=== PATIENT | male | born 1960 | race Caucasian/White ===

== ENCOUNTER → 2017-05-10 15:47 | Outpatient (CLI) | payer BC, SELFPAY ==
[2017-05-10 18:32] LABS: Ferritin 294 ng/mL (26-388); Iron 53 ug/dL (65-175); Iron Binding Capacity,Total 298 ug/dL (250-450)
[2017-05-10 18:34] LABS: Absolute Lymphocyte Count 2.27 X10^3/ul (0.83-4.51); Absolute Neutrophil Count 9.7 X10^3/uL (2.0-7.7); Basophil# 0.02 X10^3/uL; Basophil% 0.2 % (0-1); Eosinophil# 0.14 X10^3/uL; Eosinophils% 1.1 % (0-5); Hemoglobin 12.5 g/dl (13.0-16.5); Immature Platelet Fraction 1.7 % (1.0-7.9); Lymphocyte # 2.27 X10^3/ul (4.0); Lymphocyte % 17.5 % (19-41); Mean Corp Hgb Conc 32.9 g/gl (32-36); Mean Corpuscular Hgb 30.7 pg (27.0-32.0); Mean Corpuscular Volume 93.4 fL (80-94); Mean Platelet Vol. 10.4 fl (6.2-12.0); Monocyte# 0.85 X10^3/uL; Monocyte% 6.6 % (0-10); Neutrophil # 9.67 X10^3/uL (2.7-7.7); Neutrophil % 74.4 % (47-70); Platelet Count 322 K/mm3 (150-450); RBC Distribution Width CV 13.3 % (11.6-14.6); RBC Distribution Width SD 45.5 fl (35.1-43.9); RET-HE 33.7 pg (30-35); Red Blood Count 4.07 M/mm3 (4.6-6.2); Reticulocyte Count 1.45 % (0.5-1.5)
[2017-05-10 18:39] LABS: POSITIVE COUNT NO; POSITIVE DIFFERENTIAL NO; POSITIVE MORPHOLOGY NO
== END ==
PROVIDERS: Family Provider Family Medicine; PCP Family Medicine; Visit Provider Family Medicine
DX: D64.9 Anemia, unspecified (principal)
CPT/HCPCS: 36415; 82728; 83540; 83550; 85025; 85045

== ENCOUNTER → 2017-06-21 13:55 | Outpatient (CLI) | payer BC, SELFPAY ==
[2017-06-21 15:44] LABS: Absolute Neutrophil Count 5.9 X10^3/uL (2.0-7.7); Basophil# 0.04 X10^3/uL; Basophil% 0.5 % (0-1); Eosinophil# 0.13 X10^3/uL; Eosinophils% 1.5 % (0-5); Hematocrit 38.2 % (40-54); Hemoglobin 12.9 g/dl (13.0-16.5); Lymphocyte % 21.6 % (19-41); Mean Corp Hgb Conc 33.8 g/gl (32-36); Mean Corpuscular Hgb 31.7 pg (27.0-32.0); Mean Corpuscular Volume 93.9 fL (80-94); Mean Platelet Vol. 10.6 fl (6.2-12.0); Monocyte# 0.78 X10^3/uL; Monocyte% 8.9 % (0-10); Neutrophil # 5.92 X10^3/uL (2.7-7.7); Neutrophil % 67.3 % (47-70); Platelet Count 318 K/mm3 (150-450); RBC Distribution Width CV 12.6 % (11.6-14.6); RBC Distribution Width SD 42.7 fl (35.1-43.9); Red Blood Count 4.07 M/mm3 (4.6-6.2); White Blood Count 8.8 K/mm3 (4.4-11.0)
[2017-06-21 15:48] LABS: POSITIVE COUNT NO; POSITIVE DIFFERENTIAL NO; POSITIVE MORPHOLOGY NO
[2017-06-21 15:59] LABS: Vitamin B12 1396 pg/mL (211-911)
[2017-06-21 16:08] LABS: ALB/GLOB Ratio 0.8 RATIO (0.9-2.4); AST(SGOT) 16 U/L (15-37); Alanine Aminotransfer ALT/SGPT 23 U/L (16-61); Albumin, Serum 3.6 g/dL (3.2-5.0); Alkaline Phosphatase 58 U/L (45-117); Anion Gap 10 (5-15); BUN 21 mg/dL (7-18); BUN/Creat Ratio 23.8 RATIO (10-20); Calcium,Total 8.7 mg/dL (8.5-10.1); Chloride 106 mmol/L (98-107); Creatinine, Serum 0.88 mg/dL (0.70-1.30); EST Glomerular Filtration Rate 95 mL/min (>60); Est Glom Filt Rate - Afr Amer 115 mL/min (>60); Ferritin 258 ng/mL (26-388); Globulin 4.3 g/dL (2.2-4.2); Glucose 131 mg/dL (74-106); Iron 68 ug/dL (65-175); Iron Binding Capacity,Total 278 ug/dL (250-450); Potassium 3.6 mmol/L (3.5-5.1); Protein, Total 7.9 g/dL (6.4-8.2); Sodium Level 139 mmol/L (136-145)
== END ==
PROVIDERS: Family Provider Family Medicine; PCP Family Medicine; Visit Provider Internal Medicine Medical Oncology
DX: D72.828 Other elevated white blood cell count (principal)
CPT/HCPCS: 80053; 82607; 82728; 82746; 83540; 83550; 84403; 85025

== ENCOUNTER 2017-07-27 15:30 | Outpatient (RCR) | payer BC, SELFPAY ==
[2017-06-12 15:24] VITALS: BP 124/80; PULSE 72; RESP 14; TEMP 36.6; O2SAT 96; BMI 26.4
--- NOTE | 2017-06-12 16:00 | WMO.CON_ITS ---
Consult Referring Physician: Dr. Blue Gomes. Consult Results: Neutrophilia Subjective Date of Service:: 06/12/17 Chief Complaint: Referred for anemia and neutrophilia. History of Present Illness: 56y.o.man was found to have mild anemia and neutrophilia so was referred for evaluation. Hgb was 12.5 and WBC was 13.0 with neutrophils of 9.7 on 04/12/2017. He feels tired. Denies fever, weight loss, night sweats. Mother had anemia and required blood transfusions. Power of Travel Med Surg Rn: Yes Living Will: Yes Health History: Past Medical History (Last Reviewed 06/12/17 @ 15:21 by Marily Washington) Adjustment disorder with anxiety (Acute) Anemia (Acute) Erectile dysfunction (Acute) Leukocytosis (Acute) Past Surgical History (Last Reviewed 06/12/17 @ 15:21 by Marily Washington) History of prostate biopsy (Acute) Family History (Last Updated 06/12/17 @ 15:28 by Marily Washington) Father Cancer Uncle Pernicious anemia Allergies/Adverse Reactions: Allergy/AdvReac Type Severity Reaction Status Date / Time No Known Allergies Allergy Verified 06/12/17 15:21 Home Medications Medication Instructions Recorded Ascorbic Acid [Vitamin C] 1,000 mg PO DAILY 12/07/16 Cholecalciferol (Vitamin D3) 1,000 unit PO DAILY 12/07/16 [Vitamin D3] Cyanocobalamin [Vitamin B12] 1,000 mcg PO DAILY@0800 12/07/16 Naproxen Sodium [Aleve] 220 mg PO PRN PRN 12/07/16 Saw Wishram 500 mg PO DAILY 12/07/16 Triamcinolone Acetonide [Nasacort 1 spray NASAL DAILY PRN 12/07/16 Aq Nasal [place]] Review of Systems Constitutional:: Denies: Fever, Sweats, Weight loss, Appetite change, Chills Cardiovascular:: Denies: Chest pain, Palpitations, Dyspnea on exertion, Orthopnea, PND, Shortness of breath Respiratory: Denies: Cough, Hemoptysis, Shortness of Breath, Wheezing Gastrointestinal:: Denies: Abdominal pain, Nausea, Vomiting, Diarrhea, Constipation, Hematochezia Genitourinary: Denies: Dysuria, Hematuria, 15, Flank pain Musculoskeletal:: Denies: Back pain, Myalgia, Arthralgia Skin: Denies: Rash, Skin Changes, Wounds Neurological:: Denies: Headache, Dizziness, Visual changes, Tinnitus, Hearing loss Psychiatric: Denies: Anxiety, Depression, Homicidal Ideations, Suicidal Ideations Vital Signs Height 5 ft 6 in Weight: 74.389 kg Weight in Pounds 164.0 lbs Pulse Ox 96 Temperature 98 F Pulse Rate 72 Respiratory Rate 14 Blood Pressure 124/80 Blood Pressure Position Sitting - Physical Exam General: Alert, Oriented x3, No apparent distress HEENT: Atraumatic, PERRLA, EOMI, Normocephalic Oropharynx:: Dry mucosa Neck:: Supple, Trachea midline. Negative for: JVD, bilateral Cardiac:: Regular rate, Regular rhythm, Normal S1, Normal S2. Negative for: Murmur Lungs: Clear to auscultation, Excusion symmetrical. Negative for: Rhonchi, Wheezes Abdomen:: Bowel sounds x 4, Soft, Non-tender, Non-distended. Negative for: Hepatosplenomegaly Extremities:: Negative for: Cyanosis, Edema Neurological: Neuro grossly intact Skin:: Negative for: Lesions, Rash, Petechiae, Ecchymosis Psychiatric:: Appropriate affect, Euthymic Lymphatics:: Negative for: Cervical lymphadenopathy, Supraclavicular lymphadenopathy, Axillary lymphadenopathy Assessment and Plan Neutrophilia rule out CML. Anemia. Plan is to obtain BCR/ABL to rule out CML. Also obtain CBC/CMP/Vit B12/Folate/Iron profile. RTC 2 wks. Primary Care Provider: Blue Gomes Referring Provider: Blue Gomes - Problem List (1) Neutrophilia Status: Chronic (2) Anemia Status: Chronic Qualifiers: Anemia type: unspecified type Qualified Code(s): D64.9 - Anemia, unspecified Code Visit Office Visits / Consults: [id number] OP Consult L3
[2017-07-27 15:26] VITALS: BP 118/76; PULSE 68; RESP 16; TEMP 36.9; O2SAT 96; BMI 25.9
--- NOTE | 2017-07-27 15:36 | ONC.OV1 ---
Subjective - Date of Service Date of Service:: 07/27/17 - Chief Complaint Referred for anemia and neutrophilia. - History of Present Illness 56y.o.man was found to have mild anemia and neutrophilia so was referred for evaluation. Hgb was 12.5 and WBC was 13.0 with neutrophils of 9.7 on 04/12/2017. He feels tired. Denies fever, weight loss, night sweats. Mother had anemia and required blood transfusions. - Past Medical/Social History Social History Smoking Status Never smoker Review of Systems Constitutional:: Denies: Fever, Sweats, Weight loss, Appetite change, Chills Cardiovascular:: Denies: Chest pain, Palpitations, Dyspnea on exertion, Orthopnea, PND, Shortness of breath Respiratory: Denies: Cough, Hemoptysis, Shortness of Breath, Wheezing Gastrointestinal:: Denies: Abdominal pain, Nausea, Vomiting, Diarrhea, Constipation, Hematochezia Genitourinary: Denies: Dysuria, Hematuria, 15, Flank pain Musculoskeletal:: Denies: Back pain, Myalgia, Arthralgia Skin: Denies: Rash, Skin Changes, Wounds Neurological:: Denies: Headache, Dizziness, Visual changes, Tinnitus, Hearing loss Psychiatric: Denies: Anxiety, Depression, Homicidal Ideations, Suicidal Ideations Vital Signs Height 5 ft 6 in Weight: 73.028 kg Weight in Pounds 161.0 lbs Pulse Ox 96 Temperature 98.5 F Pulse Rate 68 Respiratory Rate 16 Blood Pressure 118/76 Blood Pressure Position Sitting - Physical Exam General: Alert, Oriented x3, No apparent distress Laboratory Data: 06/21/2017 WBC 8.8. 06/21/2017 BCR/ABL negative. Assessment and Plan Neutrophilia-resolved. Plan is to do observation. F/U with Dr. Gomes RTC prn. Primary Care Provider: Blue Gomes Referring Provider: Blue Gomes - Problem List (1) Neutrophilia Status: Resolved (2) Anemia Status: Resolved Qualifiers: Anemia type: unspecified type Qualified Code(s): D64.9 - Anemia, unspecified Code Visit Office Visits / Consults: [id number] OV L3 Est
== END 2017-07-27 16:19 | disposition home or self-care (01) ==
LOC: OMD 15:30
PROVIDERS: Family Provider Family Medicine; PCP Family Medicine; Visit Provider Internal Medicine Medical Oncology
DX: D72.0 Genetic anomalies of leukocytes (principal); D64.9 Anemia, unspecified

== ENCOUNTER → 2019-02-01 09:35 | Outpatient (CLI) | payer BC, SELFPAY ==
[2019-02-01 12:31] LABS: Absolute Lymphocyte Count 1.97 X10^3/uL (0.83-4.51); Absolute Neutrophil Count 5.2 X10^3/uL (2.0-7.7); Basophil# 0.05 X10^3/uL; Basophil% 0.6 % (0-1); Eosinophil# 0.38 X10^3/uL; Eosinophils% 4.6 % (0-5); Hemoglobin 13.9 g/dL (13.0-16.5); Lymphocyte # 1.97 X10^3/ul (4.0); Mean Corp Hgb Conc 33.1 g/dL (32-36); Mean Corpuscular Hgb 31.2 pg (27.0-32.0); Mean Corpuscular Volume 94.4 fL (80-94); Mean Platelet Vol. 10.1 fl (6.2-12.0); Monocyte# 0.61 X10^3/uL; Monocyte% 7.4 % (0-10); NRBC Flagged by Analyzer 0 % (0-5); Neutrophil # 5.15 X10^3/uL (2.7-7.7); Neutrophil % 62.9 % (47-70); Platelet Count 341 K/mm3 (150-450); RBC Distribution Width CV 11.8 % (11.6-14.6); RBC Distribution Width SD 41.1 fl (35.1-43.9); Red Blood Count 4.45 M/mm3 (4.6-6.2); White Blood Count 8.2 K/mm3 (4.4-11.0)
[2019-02-01 13:22] LABS: AST(SGOT) 20 U/L (15-37); Alanine Aminotransfer ALT/SGPT 37 U/L (16-61); Albumin, Serum 4.1 g/dL (3.2-5.0); Alkaline Phosphatase 50 U/L (45-117); Anion Gap 8 (5-15); BUN 16 mg/dL (7-18); BUN/Creat Ratio 16.8 RATIO (10-20); Calcium,Total 9.1 mg/dL (8.5-10.1); Chloride 103 mmol/L (98-107); Creatinine, Serum 0.95 mg/dL (0.70-1.30); EST Glomerular Filtration Rate 87 mL/min (>60); Est Glom Filt Rate - Afr Amer 105 mL/min (>60); Globulin 4.3 g/dL (2.2-4.2); Glucose 87 mg/dL (74-106); PSA,Total- Diagnostic 0.61 ng/mL (0.0-4.0); Potassium 4.3 mmol/L (3.5-5.1); Protein, Total 8.4 g/dL (6.4-8.2); Sodium Level 140 mmol/L (136-145); Thyroid Stim Hormone (TSH) 1.18 uIU/mL (0.358-3.74)
== END ==
PROVIDERS: Family Provider Family Medicine; PCP Family Medicine; Visit Provider Family Medicine
DX: D64.9 Anemia, unspecified (principal); R97.20 Elevated prostate specific antigen [PSA]
CPT/HCPCS: 36415; 80053; 84153; 84443; 85025

== ENCOUNTER → 2019-12-05 14:23 | Outpatient (CLI) | payer BC, SELFPAY ==
[2019-12-05 18:04] LABS: Absolute Lymphocyte Count 2.28 X10^3/uL (0.83-4.51); Basophil# 0.04 X10^3/uL; Basophil% 0.5 % (0-1); Eosinophil# 0.24 X10^3/uL; Eosinophils% 2.9 % (0-5); Hematocrit 38.2 % (40-54); Hemoglobin 12.4 g/dL (13.0-16.5); Lymphocyte # 2.28 X10^3/ul (4.0); Lymphocyte % 27.6 % (19-41); Mean Corp Hgb Conc 32.5 g/dL (32-36); Mean Corpuscular Hgb 30.5 pg (27.0-32.0); Mean Corpuscular Volume 94.1 fL (80-94); Mean Platelet Vol. 10.9 fl (6.2-12.0); Monocyte% 8.5 % (0-10); NRBC Flagged by Analyzer 0 % (0-5); Neutrophil # 4.99 X10^3/uL (2.7-7.7); Neutrophil % 60.3 % (47-70); Platelet Count 314 K/mm3 (150-450); RBC Distribution Width SD 41.6 fl (35.1-43.9); Red Blood Count 4.06 M/mm3 (4.6-6.2); White Blood Count 8.3 K/mm3 (4.4-11.0)
[2019-12-05 18:29] LABS: AST(SGOT) 23 U/L (15-37); Alanine Aminotransfer ALT/SGPT 34 U/L (16-61); Albumin, Serum 3.8 g/dL (3.2-5.0); Alkaline Phosphatase 47 U/L (45-117); Anion Gap 6 (5-15); BUN 26 mg/dL (7-18); BUN/Creat Ratio 21.8 RATIO (10-20); CRP < 2.90 mg/L (0.0-3.0); Calcium,Total 8.6 mg/dL (8.5-10.1); Chloride 104 mmol/L (98-107); Creatinine, Serum 1.19 mg/dL (0.70-1.30); EST Glomerular Filtration Rate 67 mL/min (>60); Est Glom Filt Rate - Afr Amer 81 mL/min (>60); Glucose 83 mg/dL (74-106); Potassium 4.1 mmol/L (3.5-5.1); Protein, Total 7.8 g/dL (6.4-8.2); Sodium Level 137 mmol/L (136-145); Thyroid Stim Hormone (TSH) 1.27 uIU/mL (0.358-3.74)
== END ==
PROVIDERS: PCP Family Medicine; Referring Provider Family Medicine; Visit Provider Family Medicine
DX: D72.829 Elevated white blood cell count, unspecified (principal)
CPT/HCPCS: 36415; 80053; 84443; 85025; 86140

== ENCOUNTER → 2021-12-16 | Outpatient (CLI) | payer BC, SELFPAY ==
--- NOTE | 2021-12-16 15:57 | RAD_ITS ---
STUDY: X-RAY - LUMBAR SPINE REASON FOR EXAM: Male, 61 years old. BACK PAIN TECHNIQUE: 5 view(s) of the lumbar spine were obtained. COMPARISON: None FINDINGS: Normal lumbar lordosis. There is no substantial scoliosis. There is a normal alignment of the vertebrae. Normal vertebral bodies and endplates. Normal disc space heights. Facet hypertrophy in the lumbar spine. The soft tissue structures are unremarkable. RAD/L/S Spine Min 4 Views IMPRESSION: Degenerative changes of the spine, as detailed above. MRI would be useful. Electronically Signed: Brandon Cui MD at 9:14 EDT ,
== END | disposition home or self-care (01) ==
LOC: MTRAD 15:55
PROVIDERS: PCP Family Medicine; Referring Provider Family Medicine; Visit Provider Family Medicine
DX: M54.9 Dorsalgia, unspecified (principal)
CPT/HCPCS: 72110

== ENCOUNTER 2022-02-02 15:00 | Outpatient (RCR) | payer BC, SELFPAY ==
--- NOTE | 2022-01-05 17:53 | HP.PTEVAL_ITS ---
Patient's Visit Information WALI CARDENAS is a 61 year old M referred to Physical Therapy by Dr. Lake Belle MD with a diagnosis of LBP. Date of Evaluation: 01/05/22 Physical Therapist: GIOVANA Ba - Visit Plan Frequency: 1x/Week Duration: 2 Weeks Plan: 4 visits for neutral spine core stability home program to increase core strength. HEP: PT, PT with table top leg kick out, bridges - weekend he picked up an old TV sets and he hurt his back and he got COVID that next week and he could not sit or anything. He started to have pain in his butt and R lateral calf (burning and dull ache) and across the foot across the toes. He went to a chiropractor and adjusted his hip and the tingle went away from his foot but came back again. He did this twice and then saw his Dr and got prednizone and meloxicam and muscle relaxant (made him too groggy). This week is the best week that he had. He feels a little tingle in his toes and slight pain in lateral calf and butt. The pain is not as intense. He takes IBPRFO. The only relief he gets is when he lays on his back. When he sitting at work he starts getting the pain. He uses TENS at home and salonpause... Today is the best day and he did not think about the pain. - Pain back pain Pain Intensity (Out of 10): 1 R calf pain Pain Intensity (Out of 10): 1 R hip pain Pain Intensity (Out of 10): 1 - Objective Gait: walks with normal gait pattern. Walks on heels and toes without an issue. Trunk AROM: flex 100%, ext 75%, Rot R 100%, SB B 100%. SLR - B. SLUMP test slight pain on the R no pain on the L. LE MMT: R hip flex 20.9# and L hip flex 21,3#. R knee ext 29.3# and L knee ext 38.4#. R knee flex 19.2# and 21.2#. B hip abd strength 21.4# B hip abd. Prone press up .... could feel a good stretch but no pain. Good piriformis length B. Little core weakness with PT and table top table touch... increase cluncking and loses PT close to foot hitting mat table - Balance/Special Test Scores Oswestry Low Back Score: 4 - Goals Goal 1:: I HEP of neutral spine core stability Goal Time Frame: 4-6 Weeks Goal 2:: Decrease back and R leg pain to 0/10 after a day at work Goal Time Frame: 4-6 Weeks Goal 3:: No pain with R SLUMP test Goal Time Frame: 4-6 Weeks - Rehabilitation Potential Rehabilitation Potential: Good - Anticipated Interventions Patient/Client Instruction: Educate patient on: Condition, Plan of Care For the Purpose of:: To decrease pain, To increase ROM, To improve nutrient delivery to tissue, To increase tolerance to activity/condition/position, To improve performance and independence with ADL's, To decrease level of supervision to perform tasks, To improve ability of physical actions for home/community/work/leisure, To improve health of tissue, To decrease soft t issue restriction, To increase flexibility/ROM Therapeutic Exercise to Include: Strength training, Postural training, Flexibilty training, Neuromotor development, Active ROM, Dynamic Lumbar Stabilization, Brunilda Exercises For the Purpose of:: To decrease pain, To increase ROM, To improve nutrient delivery to tissue, To increase oxygenation perfusion, To improve ability to perform ADL's, To increase tolerance to activity/condition/position, To improve performance and independence with ADL's, To improve health of tissue, To decrease soft tissue restriction, To increase flexibility/ROM Thank you for the opportunity to evaluate your patient. For Medicare and Medicare HMO plans, please review the plan of care and approve it. It will need to be FAXED BACK to us at [phone] for Medicare purposes. For Medicare only, by signing this I certify the plan of care. Please let me know if there are questions or concerns regarding this plan of care. Physician Signature: Date:
--- NOTE | 2022-02-02 15:30 | HP.PTDCSUM ---
It has been my pleasure to treat WALI CARDENAS referred by Dr. Lake Belle MD, with the diagnosis of LBP for a total of 5 visit(s). Discharge Date: 02/02/22 Please see the following information for a summary of their discharge status. Subjective: He had 4-5 days of good days and then it started back up like no other. Pt has pain in R glut and tingle all the way down to his toes. He has been doing all his exercises except the ball stuff. He feels that he needs to get an MRI. back pain Pain Intensity (Out of 10): 0 R calf pain Pain Intensity (Out of 10): 4 R hip pain Pain Intensity (Out of 10): 3 % Improvement: 70 Objective/Function: Pt does ok and manages his symptoms for a few days and then it comes back. He has only 3 days since this started that he has not had any pain. Pt R leg felt better and less tingling and pain at the end of treatment. Goal 1:: I HEP of neutral spine core stability Goal Progress: Goal Met Goal 2:: Decrease back and R leg pain to 0/10 after a day at work Goal Progress: Not Progressing Goal 3:: No pain with R SLUMP test Goal Progress: Progressing Plan: Pt will continue with his HEP and go back to his Dr for further diagnostics/reassessment Discharge Comments: DC PT with HEP and back to Dr. If there are questions or concerns regarding this patient's physical therapy, please feel free to call me at [phone]. Thank you for the referral of this patient. Sincerely, Vaishnavi Zheng, MPT Balance/Gait/Functional tests - Balance/Special Test Scores Oswestry Low Back Score: 8
== END 2022-02-02 19:00 | disposition home or self-care (01) ==
LOC: PT 15:00
PROVIDERS: PCP Family Medicine; Referring Provider Family Medicine; Visit Provider Family Medicine
DX: M54.50 Low back pain, unspecified (principal)
CPT/HCPCS: 97110; 97161

== ENCOUNTER → 2022-03-03 | Outpatient (CLI) | payer BC, SELFPAY ==
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
--- NOTE | 2022-03-03 07:32 | MRI_ITS ---
STUDY: MRI LUMBAR SPINE WITHOUT CONTRAST REASON FOR EXAM: Male, 61 years old. Back pain with radiation, RIGHT LEG PAIN TECHNIQUE: Standardized fat and water weighted pulse sequences were obtained in the sagittal and axial planes. COMPARISON: Lumbar spine radiographs 12/16/2021. FINDINGS: T11-T12 and T12-L1: (Sagittal only). Normal endplates. Normal disc height, hydration and morphology. No ventral extradural defects. Normal central canal and bilateral intervertebral neural foramina. Normal lumbar lordosis. There is no substantial scoliosis. Normal conus medullaris that terminates at the T12-L1 disc space level. L1-2: Normal endplates. Normal disc height, hydration and morphology. Normal bilateral facet joints. Normal central canal and bilateral lateral recesses. Normal bilateral intervertebral neural foramina. L2-3: Normal endplates. Normal disc height, hydration and morphology. Normal bilateral facet joints. Normal central canal and bilateral lateral recesses. Normal bilateral intervertebral neural foramina. L3-4: Normal endplates. Mild disc space narrowing. Minimal ventral extradural defect due to small posterior bulging annulus. Normal facet joints. Mild central canal stenosis with an AP canal diameter of 8.4 mm. Normal bilateral lateral recesses. Mild stenosis of the left intervertebral neural foramen. Normal right intervertebral neural foramen. L4-5: Normal endplates. Normal disc height. Suspicious small right posterior paramedian disc protrusion (series 2, image 8; series 3, image 8). I am unable to confirm this in the axial projection. Normal facet joints. Moderate central canal stenosis with an AP canal diameter 7.6 mm. Normal bilateral lateral recesses. Normal bilateral intervertebral neural foramina. L5-S1: Modic type II degenerative vertebral marrow fat infiltration underneath the right side of the vertebral endplates. Normal disc height, hydration and morphology. Normal facet joints. Normal central canal and bilateral lateral recesses. Normal bilateral intervertebral neural foramina. Normal visualized sacral ala. Normal visualized paraspinous soft tissue structures. MRI/Spine Lumbar (Routine) IMPRESSION: 1. Moderate central canal stenosis at L4-L5 disc space level with an AP canal diameter of 7.6 mm and suspicious small right L4-L5 posterior paramedian disc protrusion in the sagittal projection but not confirmed in the axial projection. Advise clinical correlation if there are symptoms of right nerve root sleeve radiculopathy. 2. No MRI evidence of lumbar extruded disc fragment. Electronically Signed: Arian Grace MD at 10:20 EST ,
== END | disposition home or self-care (01) ==
PROVIDERS: PCP Family Medicine; Visit Provider Family Medicine
DX: M54.9 Dorsalgia, unspecified (principal)
CPT/HCPCS: 70030; 72148

== ENCOUNTER → 2023-06-20 | Outpatient (CLI) | payer BC, SELFPAY ==
[2023-06-20 11:57] LABS: Hematocrit 40.8 % (40-54); Hemoglobin 12.9 g/dL (13.0-16.5); Mean Corp Hgb Conc 31.6 g/dL (32-36); Mean Corpuscular Hgb 29.9 pg (27.0-32.0); Mean Corpuscular Volume 94.4 fL (80-94); Mean Platelet Vol. 10.7 fl (6.2-12.0); Platelet Count 308 K/mm3 (150-450); RBC Distribution Width CV 12.3 % (11.6-14.6); RBC Distribution Width SD 43.2 fl (35.1-43.9); Red Blood Count 4.32 M/mm3 (4.6-6.2); White Blood Count 7.4 K/mm3 (4.4-11.0)
[2023-06-20 12:42] LABS: Alanine Aminotransfer ALT/SGPT 23 U/L (16-61); Cholesterol 187 mg/dL (200); Creatinine, Serum 0.88 mg/dL (0.70-1.30); EST Glomerular Filtration Rate 94 mL/min (>60); Est Glom Filt Rate - Afr Amer 114 mL/min (>60); High Density Lipoprotein 50 mg/dL; PSA,Total - Annual Screen 0.69 ng/mL (0.00-4.00); Triglycerides 89 mg/dL; Very Low Density Lipoprotein 18 mg/dL (5-40)
== END | disposition home or self-care (01) ==
LOC: MFPLAB 09:38
PROVIDERS: PCP Family Medicine; Visit Provider Family Medicine
DX: Z12.5 Encounter for screening for malignant neoplasm of prostate (principal); Z78.9 Other specified health status; D64.9 Anemia, unspecified; E78.9 Disorder of lipoprotein metabolism, unspecified
CPT/HCPCS: 36415; 80061; 82565; 84153; 84460; 85027; G0103

== ENCOUNTER → 2024-02-15 | Outpatient (CLI) | payer BC, SELFPAY ==
--- NOTE | 2024-02-15 16:10 | RAD_ITS ---
HISTORY: NECK PAIN. TECHNIQUE: XR Spine Cervical 6 or More Views. COMPARISON: None. FINDINGS: VERTEBRAE: Vertebral body heights maintained. Posterior elements appear intact. ALIGNMENT: 2 mm retrolisthesis of C4-5 and C5-6 a neutral position, unchanged in extension and reduced on flexion. Straightening of the cervical lordosis. INTERVERTEBRAL DISCS: Mild intervertebral disc space narrowing at C4-5 with mild right and moderate left foraminal narrowing. Moderate intervertebral disc space and osteophytes of C5-6 with moderate bilateral foraminal narrowing. SOFT TISSUES: No significant prevertebral soft tissue swelling. RAD/Cerv Spine Obl/Flex/Ext Comp IMPRESSION: No acute fracture or dislocation identified in the cervical spine. Degenerative disease and minimal retrolisthesis of C4-5 and C5-6 as above. Electronically Signed: Tracey Hoffman MD at 13:10 EST ,
== END | disposition home or self-care (01) ==
PROVIDERS: PCP Family Medicine; Referring Provider Family Medicine; Visit Provider Family Medicine
DX: M54.2 Cervicalgia (principal)
CPT/HCPCS: 72052

== ENCOUNTER → 2024-10-15 | Outpatient (CLI) | payer BC, SELFPAY ==
--- NOTE | 2024-10-15 14:25 | RAD_ITS ---
EXAM: XR Left Knee, 3 Views CLINICAL INDICATION: KNEE PAIN, L KNEE TECHNIQUE: Three views of the left knee. COMPARISON: No relevant prior studies available. FINDINGS: BONES/JOINTS: Mild degenerative changes of the medial compartment of the knee joint. No acute fracture. No dislocation. SOFT TISSUES: Soft tissue swelling. RAD/Knee 3 Views IMPRESSION: Degenerative changes as above. Reading Location: [facility]
--- NOTE | 2024-10-15 14:25 | RAD_ITS ---
EXAM: XR Left Knee, 3 Views CLINICAL INDICATION: KNEE PAIN, L KNEE TECHNIQUE: Three views of the left knee. COMPARISON: No relevant prior studies available. FINDINGS: BONES/JOINTS: Mild degenerative changes of the medial compartment of the knee joint. No acute fracture. No dislocation. SOFT TISSUES: Soft tissue swelling. RAD/Knee 3 Views IMPRESSION: Degenerative changes as above. Reading Location: [facility]
--- OUTSIDE RECORDS SUMMARY | 2024-10-15 21:58 | XMS RPT_ITS | CCD ---
Author Organization [facility] Care Team Providers Care Staff Rn Name Role Phone Mana BLANCHARD, Jose Wiggins Unavailable [phone] Maria Guadalupe Staley Unavailable Unavailable Eliseo, Blue Primary Care Unavailable Blue Gomes Attending Unavailable [place] Referring Unavailable Blue Gomes Primary Care Unavailable [place] Attending Unavailable Blue Gomes Primary Care Unavailable [place] Attending Unavailable [place] Referring Unavailable Medications Current Medications Medication Drug Class(es) Dates Sig (Normalized) Sig (Original) ascorbic acid 1000 mg extended release oral tablet (4 sources) Start: 12-07-2016 take 1 tablet by mouth once daily Ascorbic Acid (Vitamin C) (Vitamin C) 1,000 MG tablet extended release Active 1000 MG PO DAILY December 07, 2016 12:00am Start: 12-01-2016 VITAMIN C CAPS ASCORBIC ACID CAPS [id number] Jose Adair MD cholecalciferol 0.025 mg oral capsule (4 sources) Vitamin D Start: 12-07-2016 take 1 capsule by mouth once daily Cholecalciferol (Vitamin D3) (Vitamin D3) 1,000 UNIT capsule Active 1000 UNIT PO DAILY December 07, 2016 12:00am Start: 12-01-2016 VITAMIN D3 100 0 UNIT TABS CHOLECALCIFEROL [id number] Jose Adair MD ferrous sulfate 325 mg oral tablet (1 source) Start: 03-10-2022 take 1 tablet by mouth once daily Ferrous Sulfate (Feosol) 325 mg (65 mg iron) tablet Active 325 MG PO DAILY March 10, 2022 1:00am naproxen sodium 220 mg oral tablet (2 sources) Nonsteroidal Anti-inflammatory Drug Start: 12-07-2016 Naproxen Sodium (Aleve) 220 MG tablet Active 220 MG PO NEEDED December 07, 2016 12:00am triamcinolone acetonide 0.055 mg/actuat metered dose nasal spray (2 sources) Corticosteroid Start: 12-07-2016 Triamcinolone Acetonide (Nasacort Aq Nasal [place]) 1 SPRAY aerosol,spray Active 1 SPRAY NASAL DAILY December 07, 2016 12:00am vitamin b12 0.5 mg oral tablet (2 sources) Vitamin B12 Start: 12-07-2016 take 1000 ug by mouth once daily Cyanocobalamin (Vitamin B-12) Active 1000 MCG PO DAILY@0800 December 07, 2016 12:00am Completed/Discontinued Medications Medication Drug Class(es) Dates Sig (Normalized) Sig (Original) FOLIC ACID-VIT B6-VIT B12 (2 sources) Start: 12-01-2016 AV-MARVIN FB 2.5-25-1 MG TABS FOLIC ACID-VIT B6-VIT B12 [id number] Jose Adair MD glucosamine (2 sources) Start: 12-01-2016 [facility] GLUCOSAMINE TABS GLUCOSAMINE HCL TABS [id number] Jose Adair MD saw palmetto extract 450 mg oral capsule (2 sources) Start: 12-01-2016 [facility] SAW PALMETTO 450 MG CAPS SAW PALMETTO (SERENOA REPENS) [id number] Jose Adair MD Problems Active Problems Problem Classification Problem Date Documented Date Episodic/Chronic Deficiency and other anemia (2 sources) Anemia; Translations: [Anemia, unspecified] 07-27-2017 Episodic 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; 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, unspecified] 07-27-2017 Chronic Other non-traumatic joint disorders (1 source) Pain in right shoulder; Translations: [Pain in right shoulder] Onset: 04-08-2024 Episodic Spondylosis; intervertebral disc disorders; other back problems (1 source) Prolapsed lumbar intervertebral disc; Translations: [Other intervertebral disc displacement, lumbar region] 03-10-2022 Chronic Spondylosis; intervertebral disc disorders; other back problems (1 source) Cervicalgia; Translations: [Cervicalgia] Onset: 03-16-2024 Episodic Unclassified (2 sources) Screening for malignant neoplasm of colon ; Translations: [Encounter for screening for malignant neoplasm of colon] Onset: 12-01-2016 12-01-2016 Past or Other Problems Problem Classification Problem Date Documented Da te Episodic/Chronic Other screening for suspected conditions (not mental disorders or infectious disease) (3 sources) Patient encounter status; Translations: [Encounter for screening for malignant neoplasm of colon] Onset: 06-28-2023 07-27-2017 Episodic Results Test Name Value Interpretation Reference Range Facility Cerv Spine Obl/Flex/Ext Comp on 02-15-2024 Cerv Spine Obl/Flex/Ext Comp [facility] Imaging Services [address] [place] [address] Cerv Spine Obl/Flex/Ext Comp MR#: [id number] Acct: [id number] Name: WALI ARRIOLA Rep #: [id number] : 1960 M 63 From: Tracey yeh MD PCP: Dr. Blue Gomes MD Status: REG CLI Study: Cerv Spine Obl/Flex/Ext Comp Date of Exam: Exam# [id number] Ordering Dr: Lake Belle MD [id number] HISTORY: NECK PAIN. TECHNIQUE: XR Spine Cervical 6 or More Views. COMPARISON: None. FINDINGS: VERTEBRAE: Vertebral body heights maintained. Posterior elements appear intact. ALIGNMENT: 2 mm retrolisthesis of C4-5 and C5-6 a neutral position, unchanged in extension and reduced on flexion. Straightening of the cervical lordosis. INTERVERTEBRAL DISCS: Mild intervertebral disc space narrowing at C4-5 with mild right and moderate left foraminal narrowing. Moderate intervertebral disc space and osteophytes of C5-6 with moderate bilateral foraminal narrowing. SOFT TISSUES: No significant prevertebral soft tissue swelling. RAD/Cerv Spine Obl/Flex/Ext Comp IMPRESSION: No acute fracture or dislocation identified in the cervical spine. Degenerative disease and minimal retrolisthesis of C4-5 and C5-6 as above. Electronically Signed: Tracey Hoffman MD at 13:10 EST , CC: Dr. Blue Gomes MD; Dr. Lake Belle MD Canoe Builder: Signed Normal [facility] Alanine Aminotransferas (SGP T)on 06-20-2023 ALT [Catalytic activity/Vol] 23 U/L Normal 16-61 [facility] Comment on above: Order Comment: Order Date: 06/05/23 Order Info: [id number] - LIPID Order Info: [id number] - CRE Order Info: [id number] - ALT Order Info: [id number] - PSA Performed By: #### L 501.4405, L501.1105, L500.4100, L100.0500, L501.9910 #### [facility] [address] [place], [place], [id number] Basophil percentageOrdered B y: Blue Gomes on 06-20-2023 Cholesterol [Mass/Vol] 187 mg/dL <200 [facility] Comment on above: <200 mg/dL Desirable 200-240 mg/dL Borderline >240 mg/dL High Risk Hemoglobin (Bld) [Mass/Vol] 12.9 g/dL 13.0-16.5 [facility] Triglyceride [Mass/Vol] 89 mg/dL <199 [facility] Comment on above: The drugs N-Acetylcy steine and Metamizole may falsely depress this assay.Serum Triglycerides Reference Interval Normal <150 mg/dL Borderline high 150 - 199 mg/dL High 200 - 499 mg/dL Very High > or = 500 mg/dL WBC (Bld) [#/Vol] 7.4 10*3/uL 4.4-11.0 [facility] CBC-Complete Blood Cnt No Di ffon 06-20-2023 Erythrocyte distribution width (RBC) [Ratio] 12.3 % Normal 11.6-14.6 [facility] Comment on above: Order Comment: Order Date: 06/05/23 Order Info: [id number] - CBC Performed By: #### L 501.4405, L501.1105, L500.4100, L100.0500, L501.9910 #### [facility] [address] [place], [address] Hematocrit (Bld) [Volume fraction] 40.8 % Normal 40-54 [facility] Comment on above: Order Comment: Order Date: 06/05/23 Order Info: [id number] - CBC Performed By: #### L 501.4405, L501.1105, L500.4100, L100.0500, L501.9910 #### [facility] [address] [place], [address] Hemoglobin (Bld) [Mass/Vol] 12.9 g/dL Low 13.0-16.5 [facility] Comment on above: Order Comment: Order Date: 06/05/23 Order Info: [id number] - CBC Performed By: #### L 501.4405, L501.1105, L500.4100, L100.0500, L501.9910 #### [facility] [address] [place], [address] MCH (RBC) [Entitic mass] 29.9 pg Normal 27.0-32.0 [facility] Comment on above: Order Comment: Order Date: 06/05/23 Order Info: [id number] - CBC Performed By: #### L 501.4405, L501.1105, L500.4100, L100.0500, L501.9910 #### [facility] [address] [place], [address] MCHC (RBC) [Mass/Vol] 31.6 g/dL Low 32-36 [facility] Comment on above: Order Comment: Order Date: 06/05/23 Order Info: [id number] - CBC Performed By: #### L 501.4405, L501.1105, L500.4100, L100.0500, L501.9910 #### [facility] [address] [place], [address] MCV (RBC) [Entitic vol] 94.4 fL High 80-94 [facility] Comment on above: Order Comment: Order Date: 06/05/23 Order Info: [id number] - CBC Performed By: #### L 501.4405, L501.1105, L500.4100, L100.0500, L501.9910 #### [facility] [address] [place], [address] Platelet mean volume (Bld) [Entitic vol] 10.7 fL Normal 6.2-12.0 [facility] Comment on above: Order Comment: Order Date: 06/05/23 Order Info: [id number] - CBC Performed By: #### L 501.4405, L501.1105, L500.4100, L100.0500, L501.9910 #### [facility] [address] [place], [address] Platelets (Bld) [#/Vol] 308 10*3/uL Normal 150-450 [facility] Comment on above: Order Comment: Order Date: 06/05/23 Order Info: [id number] - CBC Performed By: #### L 501.4405, L501.1105, L500.4100, L100.0500, L501.9910 #### [facility] [address] [place], [address] RBC (Bld) [#/Vol] 4.32 10*6/uL Low 4.6-6.2 [facility] Comment on above: Order Comment: Order Date: 06/05/23 Order Info: [id number] - CBC Performed By: #### L 501.4405, L501.1105, L500.4100, L100.0500, L501.9910 #### [facility] [address] [place], [address] RDW SD 43.2 fl Normal 35.1-43.9 [facility] Comment on above: Order Comment: Order Date: 06/05/23 Order Info: [id number] - CBC Performed By: #### L 501.4405, L501.1105, L500.4100, L100.0500, L501.9910 #### [facility] [address] [place], [place], [address] WBC (Bld) [#/Vol] 7.4 10*3/uL Normal 4.4-11.0 [facility] Comment on above: Order Comment: Order Date: 06/05/23 Order Info: [id number] - CBC Performed By: #### L 501.4405, L501.1105, L500.4100, L100.0500, L501.9910 #### [facility] [address] [place], [place], [address] Determination of erythrocyte mean corpuscular volume (MCV)Ordered By: Blue Gomes on 06-20-2023 MCV (RBC) [Entitic vol] 94.4 fL 80-94 [facility] Erythrocyte distribution wid th ratioOrdered By: Blue Gomes on 06-20-2023 Erythrocyte distribution width (RBC) [Ratio] 12.3 % 11.6-14.6 [facility] Erythrocyte distribution wid th standard deviationOrdered By: Blue Gomes on 06-20-2023 Erythrocyte distribution width (RBC) [Entitic vol] 43.2 fL 35.1-43.9 [facility] Hematocrit Auto (Bld) [Volum e fraction]Ordered By: Blue Gomes on 06-20-2023 Hematocrit (Bld) [Volume fraction] 40.8 % 40-54 [facility] - Chemistry and C hemistry - challengeOrdered By: Blue Gomes on 06-20-2023 ALT [Catalytic activity/Vol] 23 U/L 16-61 [facility] Cholesterol in HDL [Mass/Vol] 50 mg/dL >40 [facility] Comment on above: The drugs N-Acetylcy steine and Metamizole may falsely depress this assay. Reference Range HDL <40 mg/dL Low HDL Cholesterol HDL >or= 60 mg/dL High HDL Cholesterol Cholesterol in LDL [Mass/Vol] 119 mg/dL 0-130 [facility] - Hematology and Cell countsOrdered By: Blue Gomes on 06-20-2023 MCH (RBC) [Entitic mass] 29.9 pg 27.0-32.0 [facility] MCHC (RBC) [Mass/Vol] 31.6 g/dL 32-36 [facility] Platelet mean volume (Bld) [Entitic vol] 10.7 fL 6.2-12.0 [facility] Platelets (Bld) [#/Vol] 308 10*3/uL 150-450 [facility] Lipid Profileon 06-20-2023 Cholesterol [Mass/Vol] 187 mg/dL Normal 200 [facility] Comment on above: Order Comment: Order Date: 06/05/23 Order Info: [id number] - LIPID Order Info: [id number] - CRE Order Info: [id number] ALT Order Info: [id number] - PSA Result Comment: <200 mg/dL Desirable 200-240 mg/dL Borderline >240 mg/dL High Risk Performed By: #### L 501.4405, L501.1105, L500.4100, L100.0500, L501.9910 #### [facility] [address] [place], [address] Cholesterol in HDL [Mass/Vol] 50 mg/dL Normal [facility] Comment on above: Order Comment: Order Date: 06/05/23 Order Info: [id number] - LIPID Order Info: 144-04 - CRE Order Info: [id number] Order Info: [id number] - PSA Result Comment: The drugs N-Acetylcysteine and Metamizole may falsely depress this assay. Reference Range HDL <40 mg/dL Low HDL Cholesterol HDL >or= 60 mg/dL High HDL Cholesterol Performed By: #### L 501.4405, L501.1105, L500.4100, L100.0500, L501.9910 #### [facility] [address] [place], [address] Cholesterol in LDL [Mass/Vol] 119 mg/dL Normal 0-130 [facility] Comment on above: Order Comment: Order Date: 06/05/23 Order Info: [id number] - LIPID Order Info: [id number] - CRE Order Info: [id number] Order Info: [id number] - PSA Performed By: #### L 501.4405, L501.1105, L500.4100, L100.0500, L501.9910 #### [facility] [address] [place], [address] Cholesterol in VLDL [Mass/Vol] 18 mg/dL Normal 5-40 [facility] Comment on above: Order Comment: Order Date: 06/05/23 Order Info: [id number] - LIPID Order Info: 144-04 - CRE Order Info: [id number] - ALT Order Info: [id number] - PSA Performed By: #### L 501.4405, L501.1105, L500.4100, L100.0500, L501.9910 #### [facility] [address] [place], [address] Triglyceride [Mass/Vol] 89 mg/dL Normal [facility] Comment on above: Order Comment: Order Date: 06/05/23 Order Info: [id number] - LIPID Order Info: 144-04 - CRE Order Info: [id number] - ALT Order Info: [id number] - PSA Result Comment: The drugs N-Acetylcysteine and Metamizole may falsely depress this assay. Serum Triglycerides Reference Interval Normal <150 mg/dL Borderline high 150 - 199 mg/dL High 200 - 499 mg/dL Very High > or = 500 mg/dL Performed By: #### L 501.4405, L501.1105, L500.4100, L100.0500, L501.9910 #### [facility] [address] [place], [place], [id number] No Panel InformationOrdered By: Blue Gomes on 06-20-2023 Estimated GFR (MDRD) Amer 114 mL/min >60 [facility] Comment on above: GFR Calc Estimated GFR (MDRD) Non-Af Amer 94 mL/min >60 [facility] Comment on above: Non- GFR Calc Prostate Specific Antigen Screen 0.69 ng/mL 0.00-4.00 [facility] Comment on above: This test was perfor med using the TPSA assay method for the[employer] chemistry system. Values obtained with differentassay methods cannot be used interchangably.When changing PSA assays in the course of monitoring apatient, additional sequential testing should be carriedout to confirm baseline values. VLDL Cholesterol 18 mg/dL 5-40 [facility] PSA,Total - Annual Screenon 06-20-2023 PSA,TOT SCREEN 0.69 ng/mL Normal 0.00-4.00 [facility] Comment on above: Order Comment: Order Date: 06/05/23 Order Info: [id number] - LIPID Order Info: 144-04 - CRE Order Info: [id number] - ALT Order Info: [id number] - PSA Result Comment: This test was performed using the TPSA assay method for the [employer] chemistry system. Values obtained with different assay methods cannot be used interchangably. When changing PSA assays in the course of monitoring a patient, additional sequential testing should be carried out to confirm baseline values. Performed By: #### L 501.4405, L501.1105, L500.4100, L100.0500, L501.9910 #### [facility] [address] [place], [address] RBC Auto (Bld) [#/Vol]Ordere d By: Blue Gomes on 06-20-2023 RBC (Bld) [#/Vol] 4.32 10*6/uL 4.6-6.2 [facility] Serum Creatinine AND GFRon 0 06-20-2023 Creatinine [Mass/Vol] 0.88 mg/dL Normal 0.70-1.30 [facility] Comment on above: Order Comment: Order Date: 06/05/23 Order Info: [id number] - LIPID Order Info: 144-04 - CRE Order Info: [id number] Order Info: [id number] - PSA Result Comment: The validity of the calculated GFR GFRAA in patients over 70 years has not been determined. Clinical correlation is essential. Performed By: #### L 501.4405, L501.1105, L500.4100, L100.0500, L501.9910 #### [facility] [address] [place], [place], [address] EST GFR - AA 114 mL/min Normal >60 [facility] Comment on above: Order Comment: Order Date: 06/05/23 Order Info: [id number] - LIPID Order Info: 144-04 - CRE Order Info: [id number] Order Info: [id number] - PSA Result Comment: Afri can [place] GFR Calc Performed By: #### L 501.4405, L501.1105, L500.4100, L100.0500, L501.9910 #### [facility] [address] [place], [place], [address] GFR/1.73 sq M.predicted among non-blacks MDRD (S/P/Bld) [Vol rate/Area] 94 mL/min/{1.73_m2} Normal >60 [facility] Comment on above: Order Comment: Order Date: 06/05/23 Order Info: [id number] - LIPID Order Info: 144-04 - CRE Order Info: [id number] Order Info: [id number] - PSA Result Comment: Non- GFR Calc Performed By: #### L 501.4405, L501.1105, L500.4100, L100.0500, L501.9910 #### [facility] [address] [place], [place], [address] Serum or plasma creatinine m easurement (mass/volume)Ordered By: Blue Gomes on 06-20-2023 Creatinine [Mass/Vol] 0.88 mg/dL 0.70-1.30 [facility] Comment on above: The validity of the calculated GFR & GFRAA in patients over 70 years has not been determined. Clinical correlation is essential. Chris 03-02-2019 CNOV Office Visit ([facility] ) WALI ARRIOLA ([id number]) 1960 M Date Time Provider Department 03/02/19 1:00 PM TRINY MOREL ([facility]) [facility] During your visit today, we recorded the following information about you: Temperature Pulse Respiration Blood pressure 99 degrees 89/minute 16/minute 118/80 Weight 79.4 kg Triny Morel APRN.CNP 03/02/2019 2:04 PM Signed Subjective HPI Wali Arriola is a 58 year old male who presents with cough, congestion, sinus pain and congestion for the past 2 weeks. He was treated previously by his PCP with prednisone and did not have improvement. Review of Systems Constitutional: Negative. HENT: Positive for congestion. Respiratory: Positive for cough, sputum production and shortness of breath. Cardiovascular: Negative. Neurological: Positive for headaches. BP 118/80 Pulse 89 Temp 37.2 ?C (99 ?F) (Tympanic) Resp 16 Wt 79.4 kg (175 lb) SpO2 96% PAST MEDICAL HISTORY Diagnosis Date - Anemia PAST SURGICAL HISTORY Procedure Laterality Date - KNEE SCOPE,DIAGNOSTIC Left - PROSTATE BIOPSY 2016 ALLERGIES Patient has no known allergies. MEDICATIONS cyanocobalamin, vitamin B-12, (VITAMIN B-12 ORAL) Take 2,500 mg by mouth once daily. cholecalciferol, vitamin D3, (VITAMIN D3 ORAL) Take by mouth. arginine oxoglurate (L-ARGININE,ALPHA-KET OGLUTARAT, ORAL) Take by mouth. gluc ferris/chondro ferris A/vit C/Mn (GLUCOSAMINE 1500 COMPLEX ORAL) Take by mouth once daily. Ascorbic Acid (VITAMIN C) 1,000 mg tablet Take 1,000 mg by mouth once daily. No family history on file. Social History Tobacco Use - Smoking status: Never Smoker - Smokeless tobacco: Never Used Substance Use Topics - Alcohol use: Yes - Drug use: Not on file Objective Physical Exam Constitutional: He is well-developed, well-nourished, and in no distress. HENT: Right Ear: Tympanic membrane, external ear and ear canal normal. Left Ear: Tympanic membrane, external ear and ear canal normal. Nose: Mucosal edema and rhinorrhea present. Mouth/Throat: Uvula is midline, oropharynx is clear and moist and mucous membranes are normal. No oropharyngeal exudate, posterior oropharyngeal edema or posterior oropharyngeal erythema. Neck: Neck supple. Cardiovascular: Normal rate, regular rhythm and normal heart sounds. Pulmonary/Chest: Effort normal. No respiratory distress. He has wheezes (few, scattered). He has no rales. Lymphadenopathy: He has no cervical adenopathy. Neurological: He is alert. Skin: Skin is warm and dry. No rash noted. No erythema. Nursing note and vitals reviewed. ASSESSMENT/PLAN: 1. Sinobronchitis - ICD9: 473.9, 490, ICD10: J32.9, J40 - Will begin treatment with Zithromax pack as directed - Supportive care with plenty of fluids, rest, and analgesia prn. - AZITHROMYCIN 250 MG TABLET - ALBUTEROL SULFATE HFA 90 MCG/ACTUATION AEROSOL INHALER - Follow-up with your PCP in 3-5 days if symptoms have not improved or sooner if symptoms worsen - Discussed red flags and need for immediate medical evaluation if any occur. - Discussed supportive care treatment with fluids, rest and analgesia. - Discussed expected course of illness HERRERA Marie APRN.CNP 03/02/2019 1:47 PM Signed ASSESSMENT/PLAN: 1. Sinobronchitis - ICD9: 473.9, 490, ICD10: J32.9, J40 - Will begin treatment with Zithromax pack as directed - Supportive care with plenty of fluids, rest, and analgesia prn. - AZITHROMYCIN 250 MG TABLET - ALBUTEROL SULFATE HFA 90 MCG/ACTUATION AEROSOL INHALER - Follow-up with your PCP in 3-5 days if symptoms have not improved or sooner if symptoms worsen - Discussed red flags and need for immediate medical evaluation if any occur. - Discussed supportive care treatment with fluids, rest and analgesia. - Discussed expected course of illness Triny Morel APRN.CNP ACUTE BRONCHITIS: You have acute bronchitis. This means the airway passages in your lungs are inflamed. Bronchitis may be caused by viruses or bacteria. Inhaling cigarette smoke will always make it worse. Exposure to irritating chemicals or second hand smoke as well as allergies can contribute to bronchitis. Repeat episodes of bronchitis may cause lifelong lung problems. Acute bronchitis is usually treated with rest, fluids, cough medicine, and possibly antibiotics or inhaled medicine to open up the small airways. It is very important that you avoid smoke and drink increased amounts of fluids. A cool air vaporizer can help thin bronchial secretions. This makes it easier to cough and clear your chest. If you are a cigarette smoker, consider using nicotine gum or skin patches to help you withdraw. Recovery from bronchitis is often slow, but you should start feeling better after 2-3 days of treatment. Please call your doctor or return here if you have any of the following symptoms: - Increased fever, chills, or chest pain. - Severe shortness of breath or bloody sputum. - Do not improve after 3 days of proper treatment. Referring Provider: SELF [200] Allergies As of Date: 03/02/2019 (No Known Allergies) Date Reviewed: 03/02/2019 Reviewed by: Susan Ortiz Gardener - Fully Assessed Reason for Visit: Cough [28] Cmt: chest congestion,wheezing and some SOB x 2 weeks Primary Visit Diagnosis:Sinobronchi tis [J32.9, J40] Order(s):azithromycin (ZITHROMAX Z-ILEANA) 250 mg tabletTake 2 tablets day one, then, 1 tablet daily until gone.Disp: 1 PackageRfl: 0 albuterol HFA (VENTOLIN HFA) 90 mcg/actuation inhalerInhale 2 Puffs as instructed every 4 hours as needed for Wheezing/Shortness of Breath.Disp: 1 InhalerRfl: 0 Prescriptions as of 03/02/2019 Sig: VITAMIN B-12 ORAL Take 2,500 mg by mouth once d* VITAMIN D3 ORAL Take by mouth. L-ARGININE(ALPHA-KETO GLUTARAT* Take by mouth. GLUCOSAMINE 1500 COMPLEX ORAL Take by mouth once daily. ASCORBIC ACID (VITAMIN C) 1,0* Take 1,000 mg by mouth once d* AZITHROMYCIN 250 MG TABLET Take 2 tablets day one, then,* ALBUTEROL SULFATE HFA 90 MCG/* Inhale 2 Puffs as instructed * Problem List As Of Date: 03/02/2019 (None) Other instructions from your clinician: ASSESSMENT/PLAN: 1. Sinobronchitis - ICD9: 473.9, 490, ICD10: J32.9, J40 - Will begin treatment with Zithromax pack as directed - Supportive care with plenty of fluids, rest, and analgesia prn. - AZITHROMYCIN 250 MG TABLET - ALBUTEROL SULFATE HFA 90 MCG/ACTUATION AEROSOL INHALER - Follow-up with your PCP in 3-5 days if symptoms have not improved or sooner if symptoms worsen - Discussed red flags and need for immediate medical evaluation if any occur. - Discussed supportive care treatment with fluids, rest and analgesia. - Discussed expected course of illness Triny Morel APRN.BETINA ACUTE BRONCHITIS: You have acute bronchitis. This means the airway passages in your lungs are inflamed. Bronchitis may be caused by viruses or bacteria. Inhaling cigarette smoke will always make it worse. Exposure to irritating chemicals or second hand smoke as well as allergies can contribute to bronchitis. Repeat episodes of bronchitis may cause lifelong lung problems. Acute bronchitis is usually treated with rest, fluids, cough medicine, and possibly antibiotics or inhaled medicine to open up the small airways. It is very important that you avoid smoke and drink increased amounts of fluids. A cool air vaporizer can help thin bronchial secretions. This makes it easier to cough and clear your chest. If you are a cigarette smoker, consider using nicotine gum or skin patches to help you withdraw. Recovery from bronchitis is often slow, but you should start feeling better after 2-3 days of treatment. Please call your doctor or return here if you have any of the following symptoms: - Increased fever, chills, or chest pain. - Severe shortness of breath or bloody sputum. - Do not improve after 3 days of proper treatment. Prescriptions ordered this encounter Disp Refills Start End AZITHROMYCIN 250 MG TABLET 1 Pa* 0 03/02/2019 03/07/2019 Sig: Take 2 tablets day one, then, 1 tablet daily until gone. ALBUTEROL SULFATE HFA 90 MCG/ACTUATI* 1 In* 0 03/02/2019 Cmt: Generic or brand: dispense inhaler preferred by patient/insurance unless MAGDIEL flag is selected. Route: INHALATION Sig: Inhale 2 Puffs as instructed every 4 hours as needed for Wheezing/Shortness of Breath. Disposition: Return if symptoms worsen or fail to improve. Follow-up and Disposition History Recorded Encounter Status:Closed by TRINY MOREL on 03/02/19 Normal [facility] PROGRESSon 03-02-2019 PROGRESS HNO ID: [id number] Author: Triny Morel Service: ? Author Type: Nurse Practitioner Type: Progress Notes Filed: 03/02/2019 2:04 PM Note Text: Subjective HPI Wali Arriola is a 58 year old male who presents with cough, congestion, sinus pain and congestion for the past 2 weeks. He was treated previously by his PCP with prednisone and did not have improvement. Review of Systems Constitutional: Negative. HENT: Positive for congestion. Respiratory: Positive for cough, sputum production and shortness of breath. Cardiovascular: Negative. Neurological: Positive for headaches. BP 118/80 Pulse 89 Temp 37.2 ?C (99 ?F) (Tympanic) Resp 16 Wt 79.4 kg (175 lb) SpO2 96% PAST MEDICAL HISTORY Diagnosis Date - Anemia PAST SURGICAL HISTORY Procedure Laterality Date - KNEE SCOPE,DIAGNOSTIC Left - PROSTATE BIOPSY 2017 ALLERGIES Patient has no known allergies. MEDICATIONS cyanocobalamin, vitamin B-12, (VITAMIN B-12 ORAL) Take 2,500 mg by mouth once daily. cholecalciferol, vitamin D3, (VITAMIN D3 ORAL) Take by mouth. arginine oxoglurate (L-ARGININE,ALPHA-KET OGLUTARAT, ORAL) Take by mouth. gluc ferris/chondro ferris A/vit C/Mn (GLUCOSAMINE 1500 COMPLEX ORAL) Take by mouth once daily. Ascorbic Acid (VITAMIN C) 1,000 mg tablet Take 1,000 mg by mouth once daily. No family history on file. Social History Tobacco Use - Smoking status: Never Smoker - Smokeless tobacco: Never Used Substance Use Topics - Alcohol use: Yes - Drug use: Not on file Objective Physical Exam Constitutional: He is well-developed, well-nourished, and in no distress. HENT: Right Ear: Tympanic membrane, external ear and ear canal normal. Left Ear: Tympanic membrane, external ear and ear canal normal. Nose: Mucosal edema and rhinorrhea present. Mouth/Throat: Uvula is midline, oropharynx is clear and moist and mucous membranes are normal. No oropharyngeal exudate, posterior oropharyngeal edema or posterior oropharyngeal erythema. Neck: Neck supple. Cardiovascular: Normal rate, regular rhythm and normal heart sounds. Pulmonary/Chest: Effort normal. No respiratory distress. He has wheezes (few, scattered). He has no rales. Lymphadenopathy: He has no cervical adenopathy. Neurological: He is alert. Skin: Skin is warm and dry. No rash noted. No erythema. Nursing note and vitals reviewed. ASSESSMENT/PLAN: 1. Sinobronchitis - ICD9: 473.9, 490, ICD10: J32.9, J40 - Will begin treatment with Zithromax pack as directed - Supportive care with plenty of fluids, rest, and analgesia prn. - AZITHROMYCIN 250 MG TABLET - ALBUTEROL SULFATE HFA 90 MCG/ACTUATION AEROSOL INHALER - Follow-up with your PCP in 3-5 days if symptoms have not improved or sooner if symptoms worsen - Discussed red flags and need for immediate medical evaluation if any occur. - Discussed supportive care treatment with fluids, rest and analgesia. - Discussed expected course of illness Triny Morel APRN.SERVICE DELIVERY SUPERVISOR Normal [facility] CNOVon 07-30-2018 CNOV Office Visit (VASSWS ) WALI ARRIOLA ([id number]) 1960 M Date Time Provider Department 07/30/18 11:30 AM MICHELLE KRAUSE VASSWS During your visit today, we recorded the following information about you: Blood pressure Weight 130/90 80 kg Brenda Ramachandran Ma 07/30/2018 4:20 PM Signed AMB ROOMING INTAKE FLOWSHEET DATA Risk Screening Do you have concerns about personal safety or safety in the home?: No Patient presents to clinic for 8 week F/U symptomatic varicose veins of LLE. Patient states he has no pain or itching since wearing compression stocking. Michelle Krause DO 07/30/2018 4:20 PM Signed This office note has been dictated. Michelle Krause DO Referring Provider: MICHELLE KRAUSE [[id number]] Allergies As of Date: 07/30/2018 (No Known Allergies) Date Reviewed: 06/04/2018 Reviewed by: Cooper (Jamar) JAMAR Britton - Fully Assessed Reason for Visit: Established Patient [175] Primary Visit Diagnosis:Symptomatic varicose veins of left lower extremity [I83.892] Prescriptions as of 07/30/2018 Sig: VITAMIN B-12 ORAL Take 2,500 mg by mouth once d* VITAMIN D3 ORAL Take by mouth. L-ARGININE(ALPHA-KETO GLUTARAT* Take by mouth. GLUCOSAMINE 1500 COMPLEX ORAL Take by mouth once daily. ASCORBIC ACID (VITAMIN C) 1,0* Take 1,000 mg by mouth once d* Problem List As Of Date: 07/30/2018 (None) Encounter Status:Closed by MICHELLE KRAUSE DO on 07/30/18 Normal [facility] PROGRESSon 07-30-2018 PROGRESS HNO ID: [id number] Author: Michelle Krause Service: ? Author Type: Physician Type: Progress Notes Filed: 07/30/2018 4:20 PM Note Text: This office note has been dictated. Michelle Krause DO [facility] PROGRESS HNO ID: [id number] Author: Michelle Krause Service: Vascular Surgery Author Type: Physician Type: Progress Notes Filed: 08/02/2018 3:46 PM Note Text: NAME: WALI ARRIOLA CLINIC NO: [id number] DATE OF SERVICE: 07/30/2018 Subjective: Mr. Arriola is here to follow up on venous insufficiency for left lower extremity varicose veins. He has been wearing his compression stocking and notices some improvement in the itching and discomfort. Objective: His vital signs are stable. He is in no distress. He has left medial varicose veins. Reviewed his venous reflux testing that demonstrates segmental reflux of his greater saphenous. Assessment/Plan: Symptomatic varicose veins. Reviewed the findings with Mr. Arriola. Currently, his symptoms are controlled with noninterventional therapy. Discussed continuation of exercise, elevation and compression. He will follow up with us as needed if symptoms worsen. Michelle Krause D.O. KB/[id number] Audio #: [id number] Date Dictated: 07/30/2018 14:45:33 Date Typed: 08/02/2018 14:00:09 Date Revised: Normal [facility] PROGRESS HNO ID: [id number] Author: Brenda Ramachandran Ma Service: ? Author Type: ? Type: Progress Notes Filed: 07/30/2018 4:20 PM Note Text: AMB ROOMING INTAKE FLOWSHEET DATA Risk Screening Do you have concerns about personal safety or safety in the home?: No Patient presents to clinic for 8 week F/U symptomatic varicose veins of LLE. Patient states he has no pain or itching since wearing compression stocking. Normal [facility] CNOVon 06-04-2018 CNOV Office Visit (VASSWS ) WALI ARRIOLA ([id number]) 1960 M Date Time Provider Department 06/04/18 8:30 AM MICHELLE KRAUSE VASSWS During your visit today, we recorded the following information about you: Pulse Blood pressure 71/minute 141/90 Michelle Krause DO 06/04/2018 9:01 AM Signed VASCULAR SURGERY INITIAL CONSULT SERVICE DATE: 06/04/2018 SERVICE TIME: 8:25 AM PRIMARY CARE PHYSICIAN: [place] Consult requested for an opinion regarding the evaluation and treatment of the above. My final impression and recommendations will be communicated back to the requesting physician by way of the shared medical record or letter via US mail. CHIEF COMPLAINT/HISTORY OF PRESENT ILLNESS: Chief Complaint: Symptomatic Varicose Veins History of Present Illness: Patient is a 57 year old Unavailable male presenting for consultation, evaluation and possible treatment of varicose veins. Patient reports left aching, throbbing, pruritis and rash. Predisposing factors include family history of varicose veins is positive and include(s) mother without surgery. No specific history of injury or prior problems. Relieving factors include elevation of legs and reduced activity with mild improvement in symptoms. Patient denies DVT, phlebitis and treatment with blood thinners. Mr. Arriola is a nonsmoker and states he is on his feet all day for work. Pain Assessment: PAIN EVALUATION No data found. Duration of Symptoms: Greater Than 1 Year PREVIOUS TESTS: None CARDIOVASCULAR RISK FACTORS: Family history PAST MEDICAL/SURGICAL/FAMI LY/SOCIAL HISTORY PAST MEDICAL HISTORY Diagnosis Date - Anemia PAST SURGICAL HISTORY Procedure Laterality Date - KNEE SCOPE,DIAGNOSTIC Left - PROSTATE BIOPSY 2016 No family history on file. SOCIAL HISTORYSocial History Socioeconomic History Marital status: Spouse name: Not on file Number of children: Not on file Years of education: Not on file Highest education level: Not on file Social Needs Financial resource strain: Not on file Food insecurity - worry: Not on file Food insecurity - inability: Not on file Transportation needs - medical: Not on file Transportation needs - non-medical: Not on file Occupational History Not on file Tobacco Use Smoking status: Not on file Substance and Sexual Activity Alcohol use: Not on file Drug use: Not on file Sexual activity: Not on file Other Topics Concerns: Not on file Social History Narrative Not on file MEDICATIONS/ALLERGIES Current Outpatient Medications: cyanocobalamin, vitamin B-12, (VITAMIN B-12 ORAL) Take 2,500 mg by mouth once daily. Disp: Rfl: cholecalciferol, vitamin D3, (VITAMIN D3 ORAL) Take by mouth. Disp: Rfl: arginine oxoglurate (L-ARGININE,ALPHA-KET OGLUTARAT, ORAL) Take by mouth. Disp: Rfl: gluc ferris/chondro ferris A/vit C/Mn (GLUCOSAMINE 1500 COMPLEX ORAL) Take by mouth once daily. Disp: Rfl: Ascorbic Acid (VITAMIN C) 1,000 mg tablet Take 1,000 mg by mouth once daily. Disp: Rfl: No current facility-administered medications for this visit. ALLERGIES No Known Allergies REVIEW OF SYSTEMS Constitutional: No weight loss, malaise or fevers. HEENT: Negative for frequent or significant headaches, No changes in hearing or vision, no nose bleeds or other nasal problems Respiratory: Negative for cough, wheezing, or shortness of breath Cardiovascular: Negative for chest pain, leg swelling or palpitations Gatrointestinal: Negative for abdominal discomfort, blood in stools or black stools or change in bowel habits Genitourinary: No history of dysuria, frequency, or incontinence and No difficulty urination, nocturia >1 times per night or hematuria Musculoskeletal: Positive for back pain Endocrine: Negative for cold or heat intolerance, polyuria, polydipsia and goiter Hematology/Lymphatic: Negative for prolonged bleeding, bruising easily or swollen nodes Neurologic: No history or headaches, syncope, paralysis, seizures or tremors Integumentary: Positive for itching (left leg along varicose vein) PHYSICAL EXAM VITALS: There were no vitals taken for this visit. General: Alert, oriented, cooperative, healthy appearance Integumentary: Normal color, no rash, no lesions. HEENT: EOM, teeth in good repair. Pupils equal, round and reactive. Cardiovascular: Pulse regular. Lungs: No chest deformities or chest wall tenderness. Abdomen: Not examined Extremities: Varicose veins- large left leg varicose veins coursing from medial thigh to calf Neurological: AAOx3. Normal cognition and motor skills. Vascular: Posterior Tibial Right: Normal - Left: Normal Dorsalis Pedal Right: Normal - Left: Normal ASSESSMENT Symptomatic varicose veins Diagnostic tests reviewed for today's visit: Most recent labs Most recent imaging PLAN/RECOMMENDATIONS Discussed venous pathology with patient Recommend trial of compression stockings, elevation and exercise Will get venous reflux testing and follow up to discuss results Pre SIGNATURE: Michelle Krause DO PATIENT NAME: Wali Arriola DATE: June 04, 2018 TIME: 8:25 AM Referring Provider: SELF [[id number]] Allergies As of Date: 06/04/2018 (No Known Allergies) Date Reviewed: 06/04/2018 Reviewed by: Cooper Britton RN - Fully Assessed Reason for Visit: New Patient Evaluation [154] Primary Visit Diagnosis:Symptomatic varicose veins of left lower extremity [I83.892] Order(s): VENOUS INCOMPETENCY [facility]L [facility] [[id number]] Order #: [id number] FUTURE Prescriptions as of 06/04/2018 Sig: VITAMIN B-12 ORAL Take 2,500 mg by mouth once d* VITAMIN D3 ORAL Take by mouth. L-ARGININE(ALPHA-KETO GLUTARAT* Take by mouth. GLUCOSAMINE 1500 COMPLEX ORAL Take by mouth once daily. ASCORBIC ACID (VITAMIN C) 1,0* Take 1,000 mg by mouth once d* Problem List As Of Date: 06/04/2018 (None) Encounter Status:Closed by MICHELLE KRAUSE DO on 06/04/18 Normal [facility] PROGRESSon 06-04-2018 PROGRESS HNO ID: [id number] Author: Michelle Krause Service: ? Author Type: Physician Type: Progress Notes Filed: 06/04/2018 9:01 AM Note Text: VASCULAR SURGERY INITIAL CONSULT SERVICE DATE: 06/04/2018 SERVICE TIME: 8:25 AM PRIMARY CARE PHYSICIAN: [place] Consult requested for an opinion regarding the evaluation and treatment of the above. My final impression and recommendations will be communicated back to the requesting physician by way of the shared medical record or letter via [place] mail. CHIEF COMPLAINT/HISTORY OF PRESENT ILLNESS: Chief Complaint: Symptomatic Varicose Veins History of Present Illness: Patient is a 57 year old Unavailable male presenting for consultation, evaluation and possible treatment of varicose veins. Patient reports left aching, throbbing, pruritis and rash. Predisposing factors include family history of varicose veins is positive and include(s) mother without surgery. No specific history of injury or prior problems. Relieving factors include elevation of legs and reduced activity with mild improvement in symptoms. Patient denies DVT, phlebitis and treatment with blood thinners. Mr. Arriola is a nonsmoker and states he is on his feet all day for work. Pain Assessment: PAIN EVALUATION No data found. Duration of Symptoms: Greater Than 1 Year PREVIOUS TESTS: None CARDIOVASCULAR RISK FACTORS: Family history PAST MEDICAL/SURGICAL/FAMI LY/SOCIAL HISTORY PAST MEDICAL HISTORY Diagnosis Date - Anemia PAST SURGICAL HISTORY Procedure Laterality Date - KNEE SCOPE,DIAGNOSTIC Left - PROSTATE BIOPSY 2017 No family history on file. SOCIAL HISTORYSocial History Socioeconomic History Marital status: Spouse name: Not on file Number of children: Not on file Years of education: Not on file Highest education level: Not on file Social Needs Financial resource strain: Not on file Food insecurity - worry: Not on file Food insecurity - inability: Not on file Transportation needs - medical: Not on file Transportation needs - non-medical: Not on file Occupational History Not on file Tobacco Use Smoking status: Not on file Substance and Sexual Activity Alcohol use: Not on file Drug use: Not on file Sexual activity: Not on file Other Topics Concerns: Not on file Social History Narrative Not on file MEDICATIONS/ALLERGIES Current Outpatient Medications: cyanocobalamin, vitamin B-12, (VITAMIN B-12 ORAL) Take 2,500 mg by mouth once daily. Disp: Rfl: cholecalciferol, vitamin D3, (VITAMIN D3 ORAL) Take by mouth. Disp: Rfl: arginine oxoglurate (L-ARGININE,ALPHA-KET OGLUTARAT, ORAL) Take by mouth. Disp: Rfl: gluc ferris/chondro ferris A/vit C/Mn (GLUCOSAMINE 1500 COMPLEX ORAL) Take by mouth once daily. Disp: Rfl: Ascorbic Acid (VITAMIN C) 1,000 mg tablet Take 1,000 mg by mouth once daily. Disp: Rfl: No current facility-administered medications for this visit. ALLERGIES No Known Allergies REVIEW OF SYSTEMS Constitutional: No weight loss, malaise or fevers. HEENT: Negative for frequent or significant headaches, No changes in hearing or vision, no nose bleeds or other nasal problems Respiratory: Negative for cough, wheezing, or shortness of breath Cardiovascular: Negative for chest pain, leg swelling or palpitations Gatrointestinal: Negative for abdominal discomfort, blood in stools or black stools or change in bowel habits Genitourinary: No history of dysuria, frequency, or incontinence and No difficulty urination, nocturia >1 times per night or hematuria Musculoskeletal: Positive for back pain Endocrine: Negative for cold or heat intolerance, polyuria, polydipsia and goiter Hematology/Lymphatic: Negative for prolonged bleeding, bruising easily or swollen nodes Neurologic: No history or headaches, syncope, paralysis, seizures or tremors Integumentary: Positive for itching (left leg along varicose vein) PHYSICAL EXAM VITALS: There were no vitals taken for this visit. General: Alert, oriented, cooperative, healthy appearance Integumentary: Normal color, no rash, no lesions. HEENT: EOM, teeth in good repair. Pupils equal, round and reactive. Cardiovascular: Pulse regular. Lungs: No chest deformities or chest wall tenderness. Abdomen: Not examined Extremities: Varicose veins- large left leg varicose veins coursing from medial thigh to calf Neurological: AAOx3. Normal cognition and motor skills. Vascular: Posterior Tibial Right: Normal - Left: Normal Dorsalis Pedal Right: Normal - Left: Normal ASSESSMENT Symptomatic varicose veins Diagnostic tests reviewed for today's visit: Most recent labs Most recent imaging PLAN/RECOMMENDATIONS Discussed venous pathology with patient Recommend trial of compression stockings, elevation and exercise Will get venous reflux testing and follow up to discuss results Pre SIGNATURE: Michelle Krause DO PATIENT NAME: Wali Arriola DATE: June 04, 2018 TIME: 8:25 AM Normal [facility] Office Visit: c-scopeon - Documentation of current medications (procedure) Done Invalid Interpretation Code [facility] Work Phone: Fall risk assessment No Invalid Interpretation Code [facility] Work Phone: Tobacco use [facility] Never smoker Invalid Interpretation Code [facility] Work Phone: Vital Signs Date Time Vital Sign Value Performing Clinician Facility 12-01-2016 15:34-0400 BMI (Body Mass Index) 24.59 kg/m2 [facility] Work Phone: 12-01-2016 15:34-0400 BP Diastolic 78 mm[Hg] [facility] Work Phone: 12-01-2016 15:34-0400 BP Systolic 112 mm[Hg] [facility] Work Phone: 12-01-2016 15:34-0400 Height 170.18 cm [facility] Work Phone: 12-01-2016 15:34-0400 Pulse (Heart Rate) 76 /min [facility] Work Phone: 12-01-2016 15:34-0400 Respiratory Rate 18 /min [facility] Work Phone: 12-01-2016 15:34-0400 Weight 71.22 kg [facility] Work Phone: Encounters Encounter Date Encounter Type Care Provider Facility Start: 04-19-2024 amb[facility] Facility:[facility] Start: 02-15-2024 End: 02-15-2024 ambulatory [place] Facility:[facility] Start: 06-20-2023 End: 06-20-2023 ambulatory [facility] Work Phone: Start: 06-20-2023 End: 06-20-2023 Patient encounter procedure [facility] Start: 06-20-2023 End: 06-20-2023 ambulatory [facility] Facility:[facility] Start: 03-03-2022 End: 03-03-2022 ambulatory [facility] Work Phone: Start: 03-03-2022 End: 03-03-2022 Patient encounter procedure [facility] Start: 02-02-2022 End: 02-02-2022 Discharged Recurring [facility] Start: 12-16-2021 End: 12-16-2021 [facility] Procedures Date Procedure Procedure Detail Performing Clinician Start: 03-03-2022 MRI of lumbar spine Start: 03-03-2022 X-ray of eye for foreign body Start: 12-16-2021 X-ray of lumbosacral spine Plan of Treatment Date Care Activity Detail Author Start: 12-09-2016 End: 12-09-2016 Appointment Appointment [facility] Work Phone: Start: 12-01-2016 End: 12-01-2016 Appointment Appointment [facility] Work Phone: Start: 12-01-2016 End: 12-01-2016 Diagnostic colonoscopy Colonoscopy [facility] Work Phone: Payers Date Payer Category Payer Self-pay [id number] 2023 Unknown [id number] Unknown [id number] Unknown [id number] Unknown [id number] Social History Date Type Detail Facility Start: 07-27-2017 End: 03-10-2022 Tobacco smoking status MNIS Unknown if ever smoked [facility] Start: 1960 Sex Assigned At Male [facility] Evaluation note Note Date & Type Note Facility Evaluation note No assessment information availa ble [facility] Work Phone: Summary Purpose Family History No Family History Records Found Relationship Condition Age at Onset Recorded Date/T maritza father Malignant neoplasm Unknown uncle Pernicious anemia Unknown Advance Directives No Advanced Directives Records Found Advance Directive Response Recorded Date/ Time Living Will Yes June 12, 2017 3:00pm Power of [employer] Supervisor Yes June 12 3:00pm Advance Directive Response Recorded Date/ Time Living Will Yes June 12, 2017 4:00pm Power of [employer] Supervisor Yes June 12 4:00pm Chief Complaint and Reason for Visit Chief Complaint BACK PAIN LOW BACK PAIN/RX HERE BACK PAIN W/RADIATION Additional Source Comments (unrecognized sect ion and content) No Status Records FoundNo Status Records Found INFORMATION SOURCE (unrecogn ized section and content) DATE CREATED AUTHOR 03/02/2019 [facility] DATE CREATED AUTHOR AUTHOR'S ORGANIZ ATION 04/14/2024 [facility] Goals (unrecognized section and content) Goals may be documented in a n alternate sectionGoals may be documented in an alternate section Care Teams (unrecognized sec tion and content) Team Status: Active Member Role Status Dates Dr. Blue Gomes MD Family Provider Active Dr. Blue Gomes MD Primary Care Provider Active Team Status: Inactive Member Role Status Dates Dr. Blue Gomes MD Primary Care Provider, Attending P savage Active FOR RECORDS PERTAINING TO PATIENTS WHO ARE OR HAVE BEEN ENROLLED IN A CHEMICAL DEPENDENCY/SUBSTANCEABUSE PROGRAM, SOME INFORMATION MAY BE OMITTED. This clinical summary was aggregated from multiple sources. Caution should be exercised in using it in the provision of clinical care. This summary normalizes information from multiple sources, and as a consequence, information in this document may materially change the coding, format and clinical context of patient data. In addition, data may be omitted in some cases. CLINICAL DECISIONS SHOULD BE BASED ON THE PRIMARY CLINICAL RECORDS. [facility] [employer] [facility]. provides no warranty or guarantee of the accuracy or completeness of information in this document.
--- OUTSIDE RECORDS SUMMARY | 2024-10-15 21:58 | XMS RPT_ITS | CCD ---
Author Organization [facility] Partnership [facility] Care Team Providers Care Ampoule Sealer Name Role Phone Mana BLANCAHRD, Jose Wiggins Unavailable Maria Guadalupe Staley Unavailable Unavailable Eliseo, Blue [...] 12-01-2016 VITAMIN C CAPS ASCORBIC ACID CAPS [id number] Jose Adair MD cholecalciferol 0.025 mg oral capsule (4 sources) Vitamin D Start: 12-07-2016 take 1 capsule by mouth once daily Cholecalciferol (Vitamin D3) (Vitamin D3) 1,000 UNIT capsule Active 1000 UNIT PO DAILY December 07, 2016 12:00am Start: 12-01-2016 VITAMIN D3 100 0 UNIT TABS CHOLECALCIFEROL [id number] Jose Adair MD ferrous sulfate 325 mg [...] Start: 12-07-2016 Triamcinolone Acetonide (Nasacort Aq Nasal [place]) 1 SPRAY aerosol,spray Active 1 SPRAY NASAL [...] 2.5-25-1 MG TABS FOLIC ACID-VIT B6-VIT B12 [id number] Jose Adair MD glucosamine (2 sources) Start: 12-01-2016 [facility] GLUCOSAMINE TABS GLUCOSAMINE HCL TABS [id number] Jose Adair MD saw palmetto extract 450 mg oral capsule (2 sources) Start: 12-01-2016 [facility] SAW PALMETTO 450 MG CAPS SAW PALMETTO (SERENOA REPENS) [id number] Jose Adair MD Problems Active Problems Problem [...] Comp on 02-15-2024 Cerv Spine Obl/Flex/Ext Comp [facility] Services [address] [place] [address] Cerv Spine Obl/Flex/Ext Comp MR#: [id number] Acct: [id number] Name: WALI ARRIOLA Rep #: [id number] : 1960 M 63 From: Tracey yeh MD PCP: Dr. Blue Gomes MD Status: REG CLI Study: Cerv Spine Obl/Flex/Ext Comp Date of Exam: Exam# [id number] Ordering Dr: [place] MD [id number] HISTORY: NECK PAIN. TECHNIQUE: XR Spine Cervical [...] Blue Gomes MD; Dr. [place] MD Electrical Construction Project Manager: Signed Normal [facility] Alanine Aminotransferas (SGP T)on 06-20-2023 ALT [Catalytic activity/Vol] 23 U/L Normal 16-61 [facility] Comment on above: Order Comment: Order Date: 06/05/23 Order Info: [id number] - LIPID Order Info: [id number] - CRE Order Info: [id number] - ALT Order Info: [id number] - PSA Performed By: #### L 501.4405, L501.1105, L500.4100, L100.0500, L501.9910 #### [facility] Laboratory [address] [place], [place], [address] Basophil percentageOrdered B y: Bule Gomes on 06-20-2023 Cholesterol [Mass/Vol] 187 mg/dL <200 [facility] Comment on above: <200 mg/dL Desirable 200-240 mg/dL Borderline >240 mg/dL High Risk Hemoglobin (Bld) [Mass/Vol] 12.9 g/dL 13.0-16.5 [facility] Triglyceride [Mass/Vol] 89 mg/dL <199 [facility] Comment on above: The drugs N-Acetylcy steine and Metamizole may falsely depress this assay.Serum Triglycerides Reference Interval Normal <150 mg/dL Borderline high 150 - 199 mg/dL High 200 - 499 mg/dL Very High > or = 500 mg/dL WBC (Bld) [#/Vol] 7.4 10*3/uL 4.4-11.0 [facility] CBC-Complete Blood Cnt No Di ffon 06-20-2023 Erythrocyte distribution width (RBC) [Ratio] 12.3 % Normal 11.6-14.6 [facility] Comment on above: Order Comment: Order Date: 06/05/23 Order Info: [id number] - CBC Performed By: #### L 501.4405, L501.1105, L500.4100, L100.0500, L501.9910 #### [facility] [address] [place], [address] Hematocrit (Bld) [Volume fraction] 40.8 % Normal 40-54 [facility] Comment on above: Order Comment: Order Date: 06/05/23 Order Info: [id number] - CBC Performed By: #### L 501.4405, L501.1105, L500.4100, L100.0500, L501.9910 #### [facility] [address] [place], [address] Hemoglobin (Bld) [Mass/Vol] 12.9 g/dL Low 13.0-16.5 [facility] Comment on above: Order Comment: Order Date: 06/05/23 Order Info: [id number] - CBC Performed By: #### L 501.4405, L501.1105, L500.4100, L100.0500, L501.9910 #### [facility] [address] [place], [address] MCH (RBC) [Entitic mass] 29.9 pg Normal 27.0-32.0 [facility] Comment on above: Order Comment: Order Date: 06/05/23 Order Info: [id number] - CBC Performed By: #### L 501.4405, L501.1105, L500.4100, L100.0500, L501.9910 #### [facility] [address] [place], [address] MCHC (RBC) [Mass/Vol] 31.6 g/dL Low 32-36 [facility] Comment on above: Order Comment: Order Date: 06/05/23 Order Info: [id number] - CBC Performed By: #### L 501.4405, L501.1105, L500.4100, L100.0500, L501.9910 #### [facility] [address] [place], [address] MCV (RBC) [Entitic vol] 94.4 fL High 80-94 [facility] Comment on above: Order Comment: Order Date: 06/05/23 Order Info: [id number] - CBC Performed By: #### L 501.4405, L501.1105, L500.4100, L100.0500, L501.9910 #### [facility] [address] [place], [address] Platelet mean volume (Bld) [Entitic vol] 10.7 fL Normal 6.2-12.0 [facility] Comment on above: Order Comment: Order Date: 06/05/23 Order Info: [id number] - CBC Performed By: #### L 501.4405, L501.1105, L500.4100, L100.0500, L501.9910 #### [facility] [address] [place], [address] Platelets (Bld) [#/Vol] 308 10*3/uL Normal 150-450 [facility] Comment on above: Order Comment: Order Date: 06/05/23 Order Info: [id number] - CBC Performed By: #### L 501.4405, L501.1105, L500.4100, L100.0500, L501.9910 #### [facility] [address] [place], [address] RBC (Bld) [#/Vol] 4.32 10*6/uL Low 4.6-6.2 [facility] Comment on above: Order Comment: Order Date: 06/05/23 Order Info: [id number] - CBC Performed By: #### L 501.4405, L501.1105, L500.4100, L100.0500, L501.9910 #### [facility] [address] [place], [address] RDW SD 43.2 fl Normal 35.1-43.9 [facility] Comment on above: Order Comment: Order Date: 06/05/23 Order Info: [id number] - CBC Performed By: #### L 501.4405, L501.1105, L500.4100, L100.0500, L501.9910 #### [facility] [address] [place], [place], [address] WBC (Bld) [#/Vol] 7.4 10*3/uL Normal 4.4-11.0 [facility] Comment on above: Order Comment: Order Date: 06/05/23 Order Info: [id number] - CBC Performed By: #### L 501.4405, L501.1105, L500.4100, L100.0500, L501.9910 #### [facility] [address] [place], [place], [address] Determination of erythrocyte mean corpuscular volume (MCV)Ordered By: Blue Gomes on 06-20-2023 MCV (RBC) [Entitic vol] 94.4 fL 80-94 [facility] Erythrocyte distribution wid th ratioOrdered By: Blue Gomes on 06-20-2023 Erythrocyte distribution width (RBC) [Ratio] 12.3 % 11.6-14.6 [facility] Erythrocyte distribution wid th standard deviationOrdered By: Blue Gomes on 06-20-2023 Erythrocyte distribution width (RBC) [Entitic vol] 43.2 fL 35.1-43.9 [facility] Hematocrit Auto (Bld) [Volum e fraction]Ordered By: Blue Gomes on 06-20-2023 Hematocrit (Bld) [Volume fraction] 40.8 % 40-54 [facility] Laboratory - Chemistry and C hemistry - challengeOrdered By: Blue Gomes on 06-20-2023 ALT [Catalytic activity/Vol] 23 U/L 16-61 [facility] Cholesterol in HDL [Mass/Vol] 50 mg/dL >40 [facility] Comment on above: The drugs N-Acetylcy steine and Metamizole may falsely depress this assay. Reference Range HDL <40 mg/dL Low HDL Cholesterol HDL >or= 60 mg/dL High HDL Cholesterol Cholesterol in LDL [Mass/Vol] 119 mg/dL 0-130 [facility] Laboratory - Hematology and Cell countsOrdered By: Blue Gomes on 06-20-2023 MCH (RBC) [Entitic mass] 29.9 pg 27.0-32.0 [facility] MCHC (RBC) [Mass/Vol] 31.6 g/dL 32-36 [facility] Platelet mean volume (Bld) [Entitic vol] 10.7 fL 6.2-12.0 [facility] Platelets (Bld) [#/Vol] 308 10*3/uL 150-450 [facility] Lipid Profileon 06-20-2023 Cholesterol [Mass/Vol] 187 mg/dL Normal 200 [facility] Comment on above: Order Comment: Order Date: 06/05/23 Order Info: [id number] - LIPID Order Info: 144-04 - CRE Order Info: [id number] ALT Order Info: [id number] - PSA Result Comment: <200 mg/dL Desirable 200-240 mg/dL Borderline >240 mg/dL High Risk Performed By: #### L 501.4405, L501.1105, L500.4100, L100.0500, L501.9910 #### [facility] [address] [place], [address] Cholesterol in HDL [Mass/Vol] 50 mg/dL Normal [facility] Comment on above: Order Comment: Order Date: 06/05/23 Order Info: [id number] - LIPID Order Info: 144-04 - CRE Order Info: [id number] Order Info: [id number] - PSA Result Comment: The drugs N-Acetylcysteine and Metamizole may falsely depress this assay. Reference Range HDL <40 mg/dL Low HDL Cholesterol HDL >or= 60 mg/dL High HDL Cholesterol Performed By: #### L 501.4405, L501.1105, L500.4100, L100.0500, L501.9910 #### [facility] [address] [place], [address] Cholesterol in LDL [Mass/Vol] 119 mg/dL Normal 0-130 [facility] Comment on above: Order Comment: Order Date: 06/05/23 Order Info: [id number] - LIPID Order Info: 144-04 - CRE Order Info: [id number] Order Info: [id number] - PSA Performed By: #### L 501.4405, L501.1105, L500.4100, L100.0500, L501.9910 #### [facility] [address] [place], [address] Cholesterol in VLDL [Mass/Vol] 18 mg/dL Normal 5-40 [facility] Comment on above: Order Comment: Order Date: 06/05/23 Order Info: [id number] - LIPID Order Info: 144-04 - CRE Order Info: [id number] - ALT Order Info: [id number] - PSA Performed By: #### L 501.4405, L501.1105, L500.4100, L100.0500, L501.9910 #### [facility] [address] [place], [address] Triglyceride [Mass/Vol] 89 mg/dL Normal [facility] Comment on above: Order Comment: Order Date: 06/05/23 Order Info: [id number] - LIPID Order Info: 144-04 - CRE [...] L 501.4405, L501.1105, L500.4100, L100.0500, L501.9910 #### [facility] [address] [place], [place], [id number] No Panel InformationOrdered By: Blue Gomes on 06-20-2023 Estimated GFR (MDRD) Amer 114 mL/min >60 [facility] Comment on above: GFR Calc Estimated GFR (MDRD) Non-Af Amer 94 mL/min >60 [facility] Comment on above: Non- GFR Calc Prostate Specific Antigen Screen 0.69 ng/mL 0.00-4.00 [facility] Comment on above: This test was perfor med using the TPSA assay method for the[employer] chemistry system. Values obtained with differentassay methods cannot be used interchangably.When changing PSA assays in the course of monitoring apatient, additional sequential testing should be carriedout to confirm baseline values. VLDL Cholesterol 18 mg/dL 5-40 [facility] PSA,Total - Annual Screenon 06-20-2023 PSA,TOT SCREEN 0.69 ng/mL Normal 0.00-4.00 [facility] Comment on above: Order Comment: Order Date: 06/05/23 Order Info: [id number] - LIPID Order Info: 144-04 - CRE Order Info: [id number] - ALT Order Info: [id number] - PSA Result Comment: This test was performed using the TPSA assay method for the [employer] chemistry system. Values obtained with different assay methods cannot be used interchangably. When changing PSA assays in the course of monitoring a patient, additional sequential testing should be carried out to confirm baseline values. Performed By: #### L 501.4405, L501.1105, L500.4100, L100.0500, L501.9910 #### [facility] [address] [place], [address] RBC Auto (Bld) [#/Vol]Ordere d By: Blue Gomes on 06-20-2023 RBC (Bld) [#/Vol] 4.32 10*6/uL 4.6-6.2 [facility] Serum Creatinine AND GFRon 0 06-20-2023 Creatinine [Mass/Vol] 0.88 mg/dL Normal 0.70-1.30 [facility] Comment on above: Order Comment: Order Date: 06/05/23 Order Info: [id number] - LIPID Order Info: 144-04 - CRE Order Info: [id number] Order Info: 2856-04 - PSA Result Comment: The validity of the calculated GFR GFRAA in patients over 70 years has not been determined. Clinical correlation is essential. Performed By: #### L 501.4405, L501.1105, L500.4100, L100.0500, L501.9910 #### [facility] [address] [place], [place], [address] EST GFR - AA 114 mL/min Normal >60 [facility] Comment on above: Order Comment: Order Date: 06/05/23 Order Info: [id number] - LIPID Order Info: 144-04 - CRE Order Info: [id number] Order Info: 2856-04 - PSA Result Comment: Afri can Trinidadian GFR Calc Performed By: #### L 501.4405, L501.1105, L500.4100, L100.0500, L501.9910 #### [facility] [address] [place], [place], [address] GFR/1.73 sq M.predicted among non-blacks MDRD (S/P/Bld) [Vol rate/Area] 94 mL/min/{1.73_m2} Normal >60 [facility] Comment on above: Order Comment: Order Date: 06/05/23 Order Info: [id number] - LIPID Order Info: 144-04 - CRE Order Info: [id number] Order Info: 2856-04 - PSA Result Comment: Non- GFR Calc Performed By: #### L 501.4405, L501.1105, L500.4100, L100.0500, L501.9910 #### [facility] [address] [place], [place], [address] Serum or plasma creatinine m easurement (mass/volume)Ordered By: Blue Gomes on 06-20-2023 Creatinine [Mass/Vol] 0.88 mg/dL 0.70-1.30 [facility] Comment on above: The validity of the calculated GFR & GFRAA in patients over 70 years has not been determined. Clinical correlation is essential. Chris 03-02-2019 CNOV Office Visit ([facility] ) WALI ARRIOLA ([id number]) 1960 M Date Time Provider Department 03/02/19 1:00 PM TRINY MOREL (BEITNA) [facility] During your visit today, we recorded [...] Known Allergies) Date Reviewed: 03/02/2019 Reviewed by: Ssuan Ortiz Smoke Eater - Fully Assessed Reason for Visit: Cough [...] Status:Closed by TRINY MOREL on 03/02/19 Normal [facility] PROGRESSon 03-02-2019 PROGRESS HNO ID: [id number] Author: Triny Morel Service: ? Author Type: [...] Discussed expected course of illness Triny Morel APRN.PRICING SUPERVISOR Normal [facility] CNOVon 07-30-2018 CNOV Office Visit (VASSWS ) WALI ARRIOLA ([id number]) 1960 M Date Time Provider Department 07/30/18 [...] Michelle Krause DO Referring Provider: MICHELLE KRAUSE [[id number]] Allergies As of Date: 07/30/2018 (No Known Allergies) Date Reviewed: 06/04/2018 Reviewed by: Cooper (Jamar) JAMAR Britotn - Fully Assessed Reason for Visit: Established [...] by MICHELLE KRAUSE DO on 07/30/18 Normal [facility] PROGRESSon 07-30-2018 PROGRESS HNO ID: [id number] Author: Michelle Krause Service: ? Author Type: Physician Type: Progress Notes Filed: 07/30/2018 4:20 PM Note Text: This office note has been dictated. Michelle Krause DO [facility] PROGRESS HNO ID: [id number] Author: Michelle Krause Service: Vascular Surgery Author Type: Physician Type: Progress Notes Filed: 08/02/2018 3:46 PM Note Text: NAME: WALI ARRIOLA CLINIC NO: [id number] DATE OF SERVICE: 07/30/2018 Subjective: Mr. Arriola [...] worsen. Michelle Krause D.O. KB/089 Audio #: [id number] Date Dictated: 07/30/2018 14:45:33 Date Typed: 08/02/2018 14:00:09 Date Revised: Normal [facility] PROGRESS HNO ID: [id number] Author: Brenda Ramachandran Ma Service: ? Author [...] or itching since wearing compression stocking. Normal [facility] CNOVon 06-04-2018 CNOV Office Visit (VASSWS ) WALI ARRIOLA ([id number]) 1960 M Date Time Provider Department 06/04/18 [...] [I83.892] Order(s): VENOUS INCOMPETENCY [facility] [[id number]] Order #: [id number] FUTURE Prescriptions as of 06/04/2018 Sig: VITAMIN [...] by MICHELLE KRAUSE DO on 06/04/18 Normal [facility] PROGRESSon 06-04-2018 PROGRESS HNO ID: [id number] Author: Michelle Krause Service: ? Author Type: [...] June 04, 2018 TIME: 8:25 AM Normal [facility] Office Visit: c-scopeon - Documentation of current medications (procedure) Done Invalid Interpretation Code [facility] Work Phone: Fall risk assessment No Invalid Interpretation Code [facility] Work Phone: Tobacco use [facility] Never smoker Invalid Interpretation Code [facility] Work Phone: Vital Signs Date Time Vital Sign Value Performing Clinician Facility 12-01-2016 15:34-0400 BMI (Body Mass Index) 24.59 kg/m2 [facility] Work Phone: 12-01-2016 15:34-0400 BP Diastolic 78 mm[Hg] [facility] Work Phone: 12-01-2016 15:34-0400 BP Systolic 112 mm[Hg] [facility] Work Phone: 12-01-2016 15:34-0400 Height 170.18 cm [facility] Work Phone: 12-01-2016 15:34-0400 Pulse (Heart Rate) 76 /min [facility] Work Phone: 12-01-2016 15:34-0400 Respiratory Rate 18 /min [facility] Work Phone: 12-01-2016 15:34-0400 Weight 71.22 kg [facility] Work Phone: Encounters Encounter Date Encounter Type Care Provider Facility [facility]: [facility] Start: 02-15-2024 End: 02-15-2024 ambulatory [place] Facility:[facility] Start: 06-20-2023 End: 06-20-2023 ambulatory [facility] Work Phone: Start: 06-20-2023 End: 06-20-2023 Patient encounter procedure [facility] Start: 06-20-2023 End: 06-20-2023 ambulatory Blue Gomes Facility:[facility] Start: 03-03-2022 End: 03-03-2022 ambulatory [facility] Work Phone: Start: 03-03-2022 End: 03-03-2022 Patient encounter procedure [facility] Start: 02-02-2022 End: 02-02-2022 Discharged Recurring [facility]-Physical Therapy Start: 12-16-2021 End: 12-16-2021 [facility] Date Procedure Procedure Detail Performing Clinician Start: 03-03-2022 MRI of lumbar spine Start: 03-03-2022 X-ray of eye for foreign body Start: 12-16-2021 X-ray of lumbosacral spine Plan of Treatment Date Care Activity Detail Author Start: 12-09-2016 End: 12-09-2016 Appointment Appointment [facility] Work Phone: Start: 12-01-2016 End: 12-01-2016 Appointment Appointment [facility] Work Phone: Start: 12-01-2016 End: 12-01-2016 Diagnostic colonoscopy Colonoscopy [facility] Work Phone: Payers Date Payer Category Payer Self-pay [id number] 2023 Unknown [id number] Unknown [id number] [id number] Unknown [id number] [id number] Unknown [id number] [id number] Social History Date Type Detail Facility Start: 07-27-2017 End: 03-10-2022 Tobacco smoking status NYIS Unknown if ever smoked [facility] Start: 1960 Sex Assigned At Male W [facility] Evaluation note Note Date & Type Note Facility Evaluation note No assessment information availa ble [facility] Work Phone: Summary Purpose Family History No Family History Records Found Relationship Condition Age at Onset Recorded Date/T maritza father Malignant neoplasm Unknown uncle Pernicious anemia Unknown Advance Directives No Advanced Directives Records Found Advance Directive Response Recorded Date/ Time Living Will Yes June 12, 2017 3:00pm Power of Lens Grinder Rough Yes June 12 3:00pm Advance Directive Response Recorded Date/ Time Living Will Yes June 12, 2017 4:00pm Power of Lens Grinder Rough Yes June 12 4:00pm Chief Complaint and Reason for Visit Chief Complaint BACK PAIN LOW BACK PAIN/RX HERE BACK PAIN W/RADIATION Additional Source Comments (unrecognized sect ion and content) No Status Records FoundNo Status Records Found INFORMATION SOURCE (unrecogn ized section and content) DATE CREATED AUTHOR 03/02/2019 [facility] DATE CREATED AUTHOR AUTHOR'S ORGANIZ ATION 04/14/2024 [facility] Goals (unrecognized section and content) Goals may [...] BE BASED ON THE PRIMARY CLINICAL RECORDS. [facility]. provides no warranty or guarantee of the accuracy or completeness of information in this document.
== END | disposition home or self-care (01) ==
LOC: MTRAD 14:23
PROVIDERS: PCP Family Medicine; Referring Provider Family Medicine; Visit Provider Family Medicine
DX: M25.562 Pain in left knee (principal)
CPT/HCPCS: 73562

== ENCOUNTER → 2024-10-15 | Outpatient (CLI) | payer BC, SELFPAY ==
[2024-10-15 17:54] LABS: Hematocrit 36.3 % (40-54); Hemoglobin 11.8 g/dL (13.0-16.5); Immature Granulocytes Count 0.030 X10^3/uL (0.0-0.0); Mean Corp Hgb Conc 32.5 g/dL (32-36); Mean Corpuscular Volume 95.5 fL (80-94); Mean Platelet Vol. 10.2 fl (6.2-12.0); NRBC Flagged by Analyzer 0 % (0-5); Platelet Count 284 K/mm3 (150-450); RBC Distribution Width CV 12.4 % (11.6-14.6); RBC Distribution Width SD 43.7 fl (35.1-43.9); Red Blood Count 3.80 M/mm3 (4.6-6.2); White Blood Count 9.2 K/mm3 (4.4-11.0)
[2024-10-15 18:28] LABS: CRP < 3.00 mg/L (0.0-3.0)
--- OUTSIDE RECORDS SUMMARY | 2024-10-15 22:16 | XMS RPT_ITS | CCD ---
Author Organization [facility] Care Team Providers Care Improvement Leader Name Role Phone Mana BLANCHARD, Jose Wiggins Unavailable Maria Guadalupe Staley Unavailable [...] 12-01-2016 VITAMIN C CAPS ASCORBIC ACID CAPS [id number] Jose Adair MD cholecalciferol 0.025 mg oral capsule (4 sources) Vitamin D Start: 12-07-2016 take 1 capsule by mouth once daily Cholecalciferol (Vitamin D3) (Vitamin D3) 1,000 UNIT capsule Active 1000 UNIT PO DAILY December 07, 2016 12:00am Start: 12-01-2016 VITAMIN D3 100 0 UNIT TABS CHOLECALCIFEROL [id number] Jose Adair MD ferrous sulfate 325 mg [...] Start: 12-07-2016 Triamcinolone Acetonide (Nasacort Aq Nasal [place]) 1 SPRAY aerosol,spray Active 1 SPRAY NASAL [...] 2.5-25-1 MG TABS FOLIC ACID-VIT B6-VIT B12 [id number] Jose Adair MD glucosamine (2 sources) Start: 12-01-2016 [facility] GLUCOSAMINE TABS GLUCOSAMINE HCL TABS [id number] Jose Adair MD saw palmetto extract 450 mg oral capsule (2 sources) Start: 12-01-2016 [facility] SAW PALMETTO 450 MG CAPS SAW PALMETTO (SERENOA REPENS) [id number] Jose Adair MD Problems Active Problems Problem [...] [facility] [address] [place] [address] Cerv Spine Obl/Flex/Ext Comp MR#: [id number] Acct: [id number] Name: WALI ARRIOLA Rep #: [id number] : 1960 M 63 From: Tracey yeh MD PCP: Dr. Blue Gomes MD Status: REG CLI Study: Cerv Spine Obl/Flex/Ext Comp Date of Exam: Exam# [id number] Ordering Dr: [place] MD [id number] HISTORY: NECK PAIN. TECHNIQUE: XR Spine Cervical [...] Blue Gomes MD; Dr. [place] MD Meat Team Member: Signed Normal [facility] Alanine Aminotransferas (SGP T)on 06-20-2023 ALT [Catalytic activity/Vol] 23 U/L Normal 16-61 [facility] Comment on above: Order Comment: Order Date: 06/05/23 Order Info: [id number] - LIPID Order Info: [id number] - CRE Order Info: [id number] - ALT Order Info: 2857-1 - PSA Performed By: #### L 501.4405, L501.1105, L500.4100, L100.0500, L501.9910 #### [facility] [address] [place], [place], [address] Basophil percentageOrdered B y: Blue Gomes on 06-20-2023 Cholesterol [Mass/Vol] 187 mg/dL <200 [facility] Comment on above: <200 mg/dL Desirable 200-240 mg/dL Borderline >240 mg/dL High Risk Hemoglobin (Bld) [Mass/Vol] 12.9 g/dL 13.0-16.5 [facility] Triglyceride [Mass/Vol] 89 mg/dL <199 [facility] Comment on above: The drugs N-Acetylcy steine and Metamizole may falsely depress this assay.Serum Triglycerides Reference Interval Normal <150 mg/dL Borderline high 150 - 199 mg/dL High 200 - 499 mg/dL Very High > or = 500 mg/dL WBC (Bld) [#/Vol] 7.4 10*3/uL 4.4-11.0 [facility] CBC-Complete Blood Cnt No Di ffon 06-20-2023 Erythrocyte distribution width (RBC) [Ratio] 12.3 % Normal 11.6-14.6 [facility] Comment on above: Order Comment: Order Date: 06/05/23 Order Info: [id number] - CBC Performed By: #### L 501.4405, L501.1105, L500.4100, L100.0500, L501.9910 #### [facility] [address] [place], [address] Hematocrit (Bld) [Volume fraction] 40.8 % Normal 40-54 [facility] Comment on above: Order Comment: Order Date: 06/05/23 Order Info: [id number] - CBC Performed By: #### L 501.4405, L501.1105, L500.4100, L100.0500, L501.9910 #### [facility] [address] [place], [address] Hemoglobin (Bld) [Mass/Vol] 12.9 g/dL Low 13.0-16.5 [facility] Comment on above: Order Comment: Order Date: 06/05/23 Order Info: [id number] - CBC Performed By: #### L 501.4405, L501.1105, L500.4100, L100.0500, L501.9910 #### [facility] [address] [place], [address] MCH (RBC) [Entitic mass] 29.9 pg Normal 27.0-32.0 [facility] Comment on above: Order Comment: Order Date: 06/05/23 Order Info: [id number] - CBC Performed By: #### L 501.4405, L501.1105, L500.4100, L100.0500, L501.9910 #### [facility] [address] [place], [address] MCHC (RBC) [Mass/Vol] 31.6 g/dL Low 32-36 [facility] Comment on above: Order Comment: Order Date: 06/05/23 Order Info: [id number] - CBC Performed By: #### L 501.4405, L501.1105, L500.4100, L100.0500, L501.9910 #### [facility] [address] [place], [address] MCV (RBC) [Entitic vol] 94.4 fL High 80-94 [facility] Comment on above: Order Comment: Order Date: 06/05/23 Order Info: [id number] - CBC Performed By: #### L 501.4405, L501.1105, L500.4100, L100.0500, L501.9910 #### [facility] [address] [place], [address] Platelet mean volume (Bld) [Entitic vol] 10.7 fL Normal 6.2-12.0 [facility] Comment on above: Order Comment: Order Date: 06/05/23 Order Info: [id number] - CBC Performed By: #### L 501.4405, L501.1105, L500.4100, L100.0500, L501.9910 #### [facility] [address] [place], [address] Platelets (Bld) [#/Vol] 308 10*3/uL Normal 150-450 [facility] Comment on above: Order Comment: Order Date: 06/05/23 Order Info: [id number] - CBC Performed By: #### L 501.4405, L501.1105, L500.4100, L100.0500, L501.9910 #### [facility] [address] [place], [address] RBC (Bld) [#/Vol] 4.32 10*6/uL Low 4.6-6.2 [facility] Comment on above: Order Comment: Order Date: 06/05/23 Order Info: [id number] - CBC Performed By: #### L 501.4405, L501.1105, L500.4100, L100.0500, L501.9910 #### [facility] [address] [place], [address] RDW SD 43.2 fl Normal 35.1-43.9 [facility] Comment on above: Order Comment: Order Date: 06/05/23 Order Info: [id number] - CBC Performed By: #### L 501.4405, L501.1105, L500.4100, L100.0500, L501.9910 #### [facility] [address] [place], [place], [address] WBC (Bld) [#/Vol] 7.4 10*3/uL Normal 4.4-11.0 [facility] Comment on above: Order Comment: Order Date: 06/05/23 Order Info: [id number] - CBC Performed By: #### L 501.4405, L501.1105, L500.4100, L100.0500, L501.9910 #### [facility] [address] [place], [place], [address] Determination of erythrocyte mean corpuscular volume (MCV)Ordered By: Blue Gomes on 06-20-2023 MCV (RBC) [Entitic vol] 94.4 fL 80-94 [facility] Erythrocyte distribution wid th ratioOrdered By: Blue Gomes on 06-20-2023 Erythrocyte distribution width (RBC) [Ratio] 12.3 % 11.6-14.6 [facility] Erythrocyte distribution wid th standard deviationOrdered By: Blue Gomes on 06-20-2023 Erythrocyte distribution width (RBC) [Entitic vol] 43.2 fL 35.1-43.9 [facility] Hematocrit Auto (Bld) [Volum e fraction]Ordered By: Blue Gomes on 06-20-2023 Hematocrit (Bld) [Volume fraction] 40.8 % 40-54 [facility] - Chemistry and C hemistry - challengeOrdered By: Blue Gomes on 06-20-2023 ALT [Catalytic activity/Vol] 23 U/L 16-61 [facility] Cholesterol in HDL [Mass/Vol] 50 mg/dL >40 [facility] Comment on above: The drugs N-Acetylcy steine and Metamizole may falsely depress this assay. Reference Range HDL <40 mg/dL Low HDL Cholesterol HDL >or= 60 mg/dL High HDL Cholesterol Cholesterol in LDL [Mass/Vol] 119 mg/dL 0-130 [facility] - Hematology and Cell countsOrdered By: Blue Gomes on 06-20-2023 MCH (RBC) [Entitic mass] 29.9 pg 27.0-32.0 [facility] MCHC (RBC) [Mass/Vol] 31.6 g/dL 32-36 [facility] Platelet mean volume (Bld) [Entitic vol] 10.7 fL 6.2-12.0 [facility] Platelets (Bld) [#/Vol] 308 10*3/uL 150-450 [facility] Lipid Profileon 06-20-2023 Cholesterol [Mass/Vol] 187 mg/dL Normal 200 [facility] Comment on above: Order Comment: Order Date: 06/05/23 Order Info: [id number] - LIPID Order Info: 144-04 - CRE Order Info: [id number] ALT Order Info: 2856-04 - PSA Result Comment: <200 mg/dL Desirable 200-240 mg/dL Borderline >240 mg/dL High Risk Performed By: #### L 501.4405, L501.1105, L500.4100, L100.0500, L501.9910 #### [facility] [address] [place], [address] Cholesterol in HDL [Mass/Vol] 50 mg/dL Normal [facility] Comment on above: Order Comment: Order Date: 06/05/23 Order Info: [id number] - LIPID Order Info: 144-04 - CRE Order Info: [id number] Order Info: [id number] - PSA Result Comment: The drugs N-Acetylcysteine and Metamizole may falsely depress this assay. Reference Range HDL <40 mg/dL Low HDL Cholesterol HDL >or= 60 mg/dL High HDL Cholesterol Performed By: #### L 501.4405, L501.1105, L500.4100, L100.0500, L501.9910 #### [facility] [address] [place], [address] Cholesterol in LDL [Mass/Vol] 119 mg/dL Normal 0-130 [facility] Comment on above: Order Comment: Order Date: 06/05/23 Order Info: [id number] - LIPID Order Info: 144-04 - CRE Order Info: [id number] Order Info: 2857-1 - PSA Performed By: #### L 501.4405, L501.1105, L500.4100, L100.0500, L501.9910 #### [facility] [address] [place], [address] Cholesterol in VLDL [Mass/Vol] 18 mg/dL Normal 5-40 [facility] Comment on above: Order Comment: Order Date: 06/05/23 Order Info: [id number] - LIPID Order Info: 144-04 - CRE Order Info: [id number] - ALT Order Info: 2856-04 - PSA Performed By: #### L 501.4405, L501.1105, L500.4100, L100.0500, L501.9910 #### [facility] [address] [place], [address] Triglyceride [Mass/Vol] 89 mg/dL Normal [facility] Comment on above: Order Comment: Order Date: 06/05/23 Order Info: [id number] - LIPID Order Info: 144-04 - CRE [...] L 501.4405, L501.1105, L500.4100, L100.0500, L501.9910 #### [facility] [address] [place], [place], [id number] No Panel InformationOrdered By: Blue Gomes on 06-20-2023 Estimated GFR (MDRD) Amer 114 mL/min >60 [facility] Comment on above: GFR Calc Estimated GFR (MDRD) Non-Af Amer 94 mL/min >60 [facility] Comment on above: Non- GFR Calc Prostate Specific Antigen Screen 0.69 ng/mL 0.00-4.00 [facility] Comment on above: This test was perfor med using the TPSA assay method for the[employer] chemistry system. Values obtained with differentassay methods cannot be used interchangably.When changing PSA assays in the course of monitoring apatient, additional sequential testing should be carriedout to confirm baseline values. VLDL Cholesterol 18 mg/dL 5-40 [facility] PSA,Total - Annual Screenon 06-20-2023 PSA,TOT SCREEN 0.69 ng/mL Normal 0.00-4.00 [facility] Comment on above: Order Comment: Order Date: 06/05/23 Order Info: [id number] - LIPID Order Info: 144-04 - CRE Order Info: [id number] - ALT Order Info: 2856-04 - PSA Result Comment: This test was performed using the TPSA assay method for the [employer] chemistry system. Values obtained with different assay methods cannot be used interchangably. When changing PSA assays in the course of monitoring a patient, additional sequential testing should be carried out to confirm baseline values. Performed By: #### L 501.4405, L501.1105, L500.4100, L100.0500, L501.9910 #### [facility] [address] [place], [address] RBC Auto (Bld) [#/Vol]Ordere d By: Blue Gomes on 06-20-2023 RBC (Bld) [#/Vol] 4.32 10*6/uL 4.6-6.2 [facility] Serum Creatinine AND GFRon 0 06-20-2023 Creatinine [Mass/Vol] 0.88 mg/dL Normal 0.70-1.30 [facility] Comment on above: Order Comment: Order Date: 06/05/23 Order Info: [id number] - LIPID Order Info: 144-04 - CRE Order Info: 1741-09 Order Info: 2856-04 - PSA Result Comment: The validity of the calculated GFR GFRAA in patients over 70 years has not been determined. Clinical correlation is essential. Performed By: #### L 501.4405, L501.1105, L500.4100, L100.0500, L501.9910 #### [facility] [address] [place], [place], [address] EST GFR - AA 114 mL/min Normal >60 [facility] Comment on above: Order Comment: Order Date: 06/05/23 Order Info: [id number] - LIPID Order Info: 144-04 - CRE Order Info: 1741-09 Order Info: 2856-04 - PSA Result Comment: Afri can Ecuadorean GFR Calc Performed By: #### L 501.4405, L501.1105, L500.4100, L100.0500, L501.9910 #### [facility] [address] [place], [place], [address] GFR/1.73 sq M.predicted among non-blacks MDRD (S/P/Bld) [Vol rate/Area] 94 mL/min/{1.73_m2} Normal >60 [facility] Comment on above: Order Comment: Order Date: 06/05/23 Order Info: [id number] - LIPID Order Info: 144-04 - CRE Order Info: 1741-09 Order Info: 2856-04 - PSA Result Comment: Non- GFR Calc Performed By: #### L 501.4405, L501.1105, L500.4100, L100.0500, L501.9910 #### [facility] [address] [place], [place], [address] Serum or plasma creatinine m easurement (mass/volume)Ordered By: Blue Gomes on 06-20-2023 Creatinine [Mass/Vol] 0.88 mg/dL 0.70-1.30 [facility] Comment on above: The validity of the calculated GFR & GFRAA in patients over 70 years has not been determined. Clinical correlation is essential. Chris 03-02-2019 CNOV Office Visit (UCWSTR ) WALI ARRIOLA ([id number]) 1960 M Date Time Provider Department 03/02/19 [...] Date Reviewed: 03/02/2019 Reviewed by: Susan Ortiz Base Brander - Fully Assessed Reason for Visit: Cough [...] Status:Closed by TRINY MOREL on 03/02/19 Normal [facility] PROGRESSon 03-02-2019 PROGRESS HNO ID: [id number] Author: Triny Morel Service: ? Author Type: [...] Discussed expected course of illness Triny Morel APRN.MEDICAL RECORD CONSULTANT Normal [facility] CNOVon 07-30-2018 CNOV Office Visit (VASSWS ) WALI ARRIOLA ([id number]) 1960 M Date Time Provider Department 07/30/18 [...] Michelle Krause DO Referring Provider: MICHELLE KRAUSE [[id number]] Allergies As of Date: 07/30/2018 (No Known [...] by MICHELLE KRAUSE DO on 07/30/18 Normal [facility] PROGRESSon 07-30-2018 PROGRESS HNO ID: [id number] Author: Michelle Krause Service: ? Author Type: Physician Type: Progress Notes Filed: 07/30/2018 4:20 PM Note Text: This office note has been dictated. Michelle Krause DO [facility] PROGRESS HNO ID: [id number] Author: Michelle Krause Service: Vascular Surgery Author Type: Physician Type: Progress Notes Filed: 08/02/2018 3:46 PM Note Text: NAME: WALI ARRIOLA CLINIC NO: [id number] DATE OF SERVICE: 07/30/2018 Subjective: Mr. Arriola [...] worsen. Michelle Krause D.O. KB/089 Audio #: [id number] Date Dictated: 07/30/2018 14:45:33 Date Typed: 08/02/2018 14:00:09 Date Revised: Normal [facility] PROGRESS HNO ID: [id number] Author: Brenda Ramachandran Ma Service: ? Author [...] or itching since wearing compression stocking. Normal [facility] CNOVon 06-04-2018 CNOV Office Visit (VASSWS ) WALI ARRIOLA ([id number]) 1960 M Date Time Provider Department 06/04/18 8:30 AM MICHELLE KRASUE VASSWS During your visit today, we recorded [...] [I83.892] Order(s): VENOUS INCOMPETENCY [facility] [[id number]] Order #: [id number] FUTURE Prescriptions as of 06/04/2018 Sig: VITAMIN [...] by MICHELLE KRAUSE DO on 06/04/18 Normal [facility] PROGRESSon 06-04-2018 PROGRESS HNO ID: [id number] Author: Michelle Krause Service: ? Author Type: [...] June 04, 2018 TIME: 8:25 AM Normal [facility] Office Visit: c-scopeon - Documentation of current medications (procedure) Done Invalid Interpretation Code [facility] Work Phone: Fall risk assessment No Invalid Interpretation Code [facility] Work Phone: Tobacco use [facility] Never smoker Invalid Interpretation Code [facility] Work Phone: Vital Signs Date Time Vital Sign Value Performing Clinician Facility 12-01-2016 15:34-0400 BMI (Body Mass Index) 24.59 kg/m2 [facility] Work Phone: 12-01-2016 15:34-0400 BP Diastolic 78 mm[Hg] [facility] Work Phone: 12-01-2016 15:34-0400 BP Systolic 112 mm[Hg] [facility] Work Phone: 12-01-2016 15:34-0400 Height 170.18 cm [facility] Work Phone: 12-01-2016 15:34-0400 Pulse (Heart Rate) 76 /min [facility] Work Phone: 12-01-2016 15:34-0400 Respiratory Rate 18 /min [facility] Work Phone: 12-01-2016 15:34-0400 Weight 71.22 kg [facility] Work Phone: Encounters Encounter Date Encounter Type Care Provider Facility Start: 04-19-2024 [facility] Facility[facility] Start: 02-15-2024 End: 02-15-2024 ambulatory [place] Facility:[facility] Start: 06-20-2023 End: 06-20-2023 ambulatory [facility] Work Phone: Start: 06-20-2023 End: 06-20-2023 Patient encounter procedure [facility] Start: 06-20-2023 End: 06-20-2023 ambulatory Blue Gomes Facility:[facility] Start: 03-03-2022 End: 03-03-2022 ambulatory [facility] Work Phone: Start: 03-03-2022 End: 03-03-2022 Patient encounter procedure [facility] Start: 02-02-2022 End: 02-02-2022 Discharged Recurring [facility] Start: 12-16-2021 End: 12-16-2021 Patient encounter [facility] Procedures Date Procedure Procedure Detail Performing Clinician Start: 03-03-2022 MRI of lumbar spine Start: 03-03-2022 X-ray of eye for foreign body Start: 12-16-2021 X-ray of lumbosacral spine Plan of Treatment Date Care Activity Detail Author Start: 12-09-2016 End: 12-09-2016 Appointment Appointment [facility] Work Phone: Start: 12-01-2016 End: 12-01-2016 Appointment Appointment [facility] Work Phone: Start: 12-01-2016 End: 12-01-2016 Diagnostic colonoscopy Colonoscopy [facility] Work Phone: Payers Date Payer Category Payer Self-pay [id number] 2023 Unknown [id number] Unknown [id number] Unknown [id number] Unknown [id number] Social History Date Type Detail Facility Start: 07-27-2017 End: 03-10-2022 Tobacco smoking status CTIS Unknown if ever smoked [facility] Start: 1960 Sex Assigned At Male [facility] Evaluation note Note Date & Type Note Facility Evaluation note No assessment information availa ble [facility] Work Phone: Summary Purpose Family History No Family History Records Found Relationship Condition Age at Onset Recorded Date/T maritza father Malignant neoplasm Unknown uncle Pernicious anemia Unknown Advance Directives No Advanced Directives Records Found Advance Directive Response Recorded Date/ Time Living Will Yes June 12, 2017 3:00pm Power of Resume Specialist Yes June 12 3:00pm Advance Directive Response Recorded Date/ Time Living Will Yes June 12, 2017 4:00pm Power of Resume Specialist Yes June 12 4:00pm Chief Complaint and Reason for Visit Chief Complaint BACK PAIN LOW BACK PAIN/RX HERE BACK PAIN W/RADIATION Additional Source Comments (unrecognized sect ion and content) No Status Records FoundNo Status Records Found INFORMATION SOURCE (unrecogn ized section and content) DATE CREATED AUTHOR 03/02/2019 [facility] DATE CREATED AUTHOR AUTHOR'S ORGANIZ ATION 04/14/2024 [facility] Goals (unrecognized section and content) Goals [...] BE BASED ON THE PRIMARY CLINICAL RECORDS. [facility] Subtext [facility]. provides no warranty or guarantee of the accuracy or completeness of information in this document.
--- OUTSIDE RECORDS SUMMARY | 2024-10-15 22:16 | XMS RPT_ITS | CCD ---
Author Organization [facility] Care Team Providers Care Astronomy Professor Name Role Phone Mana BLANCHARD, Jose Wiggins [...] 12-01-2016 VITAMIN C CAPS ASCORBIC ACID CAPS [id number] Jose Adair MD cholecalciferol 0.025 mg oral capsule (4 sources) Vitamin D Start: 12-07-2016 take 1 capsule by mouth once daily Cholecalciferol (Vitamin D3) (Vitamin D3) 1,000 UNIT capsule Active 1000 UNIT PO DAILY December 07, 2016 12:00am Start: 12-01-2016 VITAMIN D3 100 0 UNIT TABS CHOLECALCIFEROL [id number] Jose Adair MD ferrous sulfate 325 mg [...] Start: 12-07-2016 Triamcinolone Acetonide (Nasacort Aq Nasal Shellman) 1 SPRAY aerosol,spray Active 1 SPRAY NASAL [...] 2.5-25-1 MG TABS FOLIC ACID-VIT B6-VIT B12 [id number] Jose Adair MD glucosamine (2 sources) Start: 12-01-2016 [facility] GLUCOSAMINE TABS GLUCOSAMINE HCL TABS [id number] Jose Adair MD saw palmetto extract 450 mg oral capsule (2 sources) Start: 12-01-2016 [facility] SAW PALMETTO 450 MG CAPS SAW PALMETTO (SERENOA REPENS) [id number] Jose Adair MD Problems Active Problems Problem [...] Comp on 02-15-2024 Cerv Spine Obl/Flex/Ext Comp [facility] [address] [place] [address] Cerv Spine Obl/Flex/Ext Comp MR#: [id number] Acct: [id number] Name: WALI ARRIOLA Rep #: [id number] : 1960 M 63 From: Tracey yeh MD PCP: Dr. Blue Gomes MD Status: REG CLI Study: Cerv Spine Obl/Flex/Ext Comp Date of Exam: Exam# [id number] Ordering Dr: [place] MD [id number] HISTORY: NECK PAIN. TECHNIQUE: XR Spine Cervical [...] Blue Gomes MD; Dr. [place] MD Facial Operator: Signed Normal [facility] Alanine Aminotransferas (SGP T)on 06-20-2023 ALT [Catalytic activity/Vol] 23 U/L Normal 16-61 [facility] Comment on above: Order Comment: Order Date: 06/05/23 Order Info: [id number] - LIPID Order Info: [id number] - CRE Order Info: [id number] - ALT Order Info: [id number] - PSA Performed By: #### L 501.4405, L501.1105, L500.4100, L100.0500, L501.9910 #### [facility] [address] [place], [place], [address] Basophil percentageOrdered B y: Blue Gomes on 06-20-2023 Cholesterol [Mass/Vol] 187 mg/dL <200 [facility] Comment on above: <200 mg/dL Desirable 200-240 mg/dL Borderline >240 mg/dL High Risk Hemoglobin (Bld) [Mass/Vol] 12.9 g/dL 13.0-16.5 [facility] Triglyceride [Mass/Vol] 89 mg/dL <199 [facility] Comment on above: The drugs N-Acetylcy steine and Metamizole may falsely depress this assay.Serum Triglycerides Reference Interval Normal <150 mg/dL Borderline high 150 - 199 mg/dL High 200 - 499 mg/dL Very High > or = 500 mg/dL WBC (Bld) [#/Vol] 7.4 10*3/uL 4.4-11.0 [facility] CBC-Complete Blood Cnt No Di ffon 06-20-2023 Erythrocyte distribution width (RBC) [Ratio] 12.3 % Normal 11.6-14.6 [facility] Comment on above: Order Comment: Order Date: 06/05/23 Order Info: [id number] - CBC Performed By: #### L 501.4405, L501.1105, L500.4100, L100.0500, L501.9910 #### [facility] [address] [place], [address] Hematocrit (Bld) [Volume fraction] 40.8 % Normal 40-54 [facility] Comment on above: Order Comment: Order Date: 06/05/23 Order Info: [id number] - CBC Performed By: #### L 501.4405, L501.1105, L500.4100, L100.0500, L501.9910 #### [facility] [address] [place], [address] Hemoglobin (Bld) [Mass/Vol] 12.9 g/dL Low 13.0-16.5 [facility] Comment on above: Order Comment: Order Date: 06/05/23 Order Info: [id number] - CBC Performed By: #### L 501.4405, L501.1105, L500.4100, L100.0500, L501.9910 #### [facility] [address] [place], [address] MCH (RBC) [Entitic mass] 29.9 pg Normal 27.0-32.0 [facility] Comment on above: Order Comment: Order Date: 06/05/23 Order Info: [id number] - CBC Performed By: #### L 501.4405, L501.1105, L500.4100, L100.0500, L501.9910 #### [facility] [address] [place], [address] MCHC (RBC) [Mass/Vol] 31.6 g/dL Low 32-36 [facility] Comment on above: Order Comment: Order Date: 06/05/23 Order Info: [id number] - CBC Performed By: #### L 501.4405, L501.1105, L500.4100, L100.0500, L501.9910 #### [facility] [address] [place], [address] MCV (RBC) [Entitic vol] 94.4 fL High 80-94 [facility] Comment on above: Order Comment: Order Date: 06/05/23 Order Info: [id number] - CBC Performed By: #### L 501.4405, L501.1105, L500.4100, L100.0500, L501.9910 #### [facility] [address] [place], [address] Platelet mean volume (Bld) [Entitic vol] 10.7 fL Normal 6.2-12.0 [facility] Comment on above: Order Comment: Order Date: 06/05/23 Order Info: [id number] - CBC Performed By: #### L 501.4405, L501.1105, L500.4100, L100.0500, L501.9910 #### [facility] [address] [place], [address] Platelets (Bld) [#/Vol] 308 10*3/uL Normal 150-450 [facility] Comment on above: Order Comment: Order Date: 06/05/23 Order Info: [id number] - CBC Performed By: #### L 501.4405, L501.1105, L500.4100, L100.0500, L501.9910 #### [facility] [address] [place], [address] RBC (Bld) [#/Vol] 4.32 10*6/uL Low 4.6-6.2 [facility] Comment on above: Order Comment: Order Date: 06/05/23 Order Info: [id number] - CBC Performed By: #### L 501.4405, L501.1105, L500.4100, L100.0500, L501.9910 #### [facility] [address] [place], [address] RDW SD 43.2 fl Normal 35.1-43.9 [facility] Comment on above: Order Comment: Order Date: 06/05/23 Order Info: [id number] - CBC Performed By: #### L 501.4405, L501.1105, L500.4100, L100.0500, L501.9910 #### [facility] [address] [place], [place], [address] WBC (Bld) [#/Vol] 7.4 10*3/uL Normal 4.4-11.0 [facility] Comment on above: Order Comment: Order Date: 06/05/23 Order Info: [id number] - CBC Performed By: #### L 501.4405, L501.1105, L500.4100, L100.0500, L501.9910 #### [facility] [address] [place], [place], [address] Determination of erythrocyte mean corpuscular volume (MCV)Ordered By: Blue Gomes on 06-20-2023 MCV (RBC) [Entitic vol] 94.4 fL 80-94 [facility] Erythrocyte distribution wid th ratioOrdered By: Blue Gomes on 06-20-2023 Erythrocyte distribution width (RBC) [Ratio] 12.3 % 11.6-14.6 [facility] Erythrocyte distribution wid th standard deviationOrdered By: Blue Gomes on 06-20-2023 Erythrocyte distribution width (RBC) [Entitic vol] 43.2 fL 35.1-43.9 [facility] Hematocrit Auto (Bld) [Volum e fraction]Ordered By: Blue Gomes on 06-20-2023 Hematocrit (Bld) [Volume fraction] 40.8 % 40-54 [facility] - Chemistry and C hemistry - challengeOrdered By: Blue Gomes on 06-20-2023 ALT [Catalytic activity/Vol] 23 U/L 16-61 [facility] Cholesterol in HDL [Mass/Vol] 50 mg/dL >40 [facility] Comment on above: The drugs N-Acetylcy steine and Metamizole may falsely depress this assay. Reference Range HDL <40 mg/dL Low HDL Cholesterol HDL >or= 60 mg/dL High HDL Cholesterol Cholesterol in LDL [Mass/Vol] 119 mg/dL 0-130 [facility] - Hematology and Cell countsOrdered By: Blue Gomes on 06-20-2023 MCH (RBC) [Entitic mass] 29.9 pg 27.0-32.0 [facility] MCHC (RBC) [Mass/Vol] 31.6 g/dL 32-36 [facility] Platelet mean volume (Bld) [Entitic vol] 10.7 fL 6.2-12.0 [facility] Platelets (Bld) [#/Vol] 308 10*3/uL 150-450 [facility] Lipid Profileon 06-20-2023 Cholesterol [Mass/Vol] 187 mg/dL Normal 200 [facility] Comment on above: Order Comment: Order Date: 06/05/23 Order Info: [id number] - LIPID Order Info: 144-04 - CRE Order Info: [id number] ALT Order Info: [id number] - PSA Result Comment: <200 mg/dL Desirable 200-240 mg/dL Borderline >240 mg/dL High Risk Performed By: #### L 501.4405, L501.1105, L500.4100, L100.0500, L501.9910 #### [facility] [address] [place], [address] Cholesterol in HDL [Mass/Vol] 50 mg/dL Normal [facility] Comment on above: Order Comment: Order Date: 06/05/23 Order Info: [id number] - LIPID Order Info: 144-04 - CRE Order Info: [id number] Order Info: [id number] - PSA Result Comment: The drugs N-Acetylcysteine and Metamizole may falsely depress this assay. Reference Range HDL <40 mg/dL Low HDL Cholesterol HDL >or= 60 mg/dL High HDL Cholesterol Performed By: #### L 501.4405, L501.1105, L500.4100, L100.0500, L501.9910 #### [facility] [address] [place], [address] Cholesterol in LDL [Mass/Vol] 119 mg/dL Normal 0-130 [facility] Comment on above: Order Comment: Order Date: 06/05/23 Order Info: [id number] - LIPID Order Info: 144-04 - CRE Order Info: 1741-09 Order Info: 2857-1 - PSA Performed By: #### L 501.4405, L501.1105, L500.4100, L100.0500, L501.9910 #### [facility] [address] [place], [address] Cholesterol in VLDL [Mass/Vol] 18 mg/dL Normal 5-40 [facility] Comment on above: Order Comment: Order Date: 06/05/23 Order Info: [id number] - LIPID Order Info: 144-04 - CRE Order Info: [id number] - ALT Order Info: 2856-04 - PSA Performed By: #### L 501.4405, L501.1105, L500.4100, L100.0500, L501.9910 #### [facility] [address] [place], [address] Triglyceride [Mass/Vol] 89 mg/dL Normal [facility] Comment on above: Order Comment: Order Date: 06/05/23 Order Info: [id number] - LIPID Order Info: 144-04 - CRE [...] L 501.4405, L501.1105, L500.4100, L100.0500, L501.9910 #### [facility] [address] [place], [place], [address] No Panel InformationOrdered By: Blue Gomes on 06-20-2023 Estimated GFR (MDRD) Amer 114 mL/min >60 [facility] Comment on above: GFR Calc Estimated GFR (MDRD) Non-Af Amer 94 mL/min >60 [facility] Comment on above: Non- GFR Calc Prostate Specific Antigen Screen 0.69 ng/mL 0.00-4.00 [facility] Comment on above: This test was perfor med using the TPSA assay method for theInstinctiv chemistry system. Values obtained with differentassay methods cannot be used interchangably.When changing PSA assays in the course of monitoring apatient, additional sequential testing should be carriedout to confirm baseline values. VLDL Cholesterol 18 mg/dL 5-40 [facility] PSA,Total - Annual Screenon 06-20-2023 PSA,TOT SCREEN 0.69 ng/mL Normal 0.00-4.00 [facility] Comment on above: Order Comment: Order Date: 06/05/23 Order Info: [id number] - LIPID Order Info: 144-04 - CRE Order Info: [id number] - ALT Order Info: 2856-04 - PSA Result Comment: This test was performed using the TPSA assay method for the [employer] chemistry system. Values obtained with different assay methods cannot be used interchangably. When changing PSA assays in the course of monitoring a patient, additional sequential testing should be carried out to confirm baseline values. Performed By: #### L 501.4405, L501.1105, L500.4100, L100.0500, L501.9910 #### [facility] [address] [place], [address] RBC Auto (Bld) [#/Vol]Ordere d By: Blue Gomes on 06-20-2023 RBC (Bld) [#/Vol] 4.32 10*6/uL 4.6-6.2 [facility] Serum Creatinine AND GFRon 0 06-20-2023 Creatinine [Mass/Vol] 0.88 mg/dL Normal 0.70-1.30 [facility] Comment on above: Order Comment: Order Date: 06/05/23 Order Info: [id number] - LIPID Order Info: 144-04 - CRE Order Info: 1741-09 Order Info: 2856-04 - PSA Result Comment: The validity of the calculated GFR GFRAA in patients over 70 years has not been determined. Clinical correlation is essential. Performed By: #### L 501.4405, L501.1105, L500.4100, L100.0500, L501.9910 #### [facility] [address] [place], [place], [address] EST GFR - AA 114 mL/min Normal >60 [facility] Comment on above: Order Comment: Order Date: 06/05/23 Order Info: [id number] - LIPID Order Info: 144-04 - CRE Order Info: 1741-09 Order Info: 2856-04 - PSA Result Comment: Afri can [place] GFR Calc Performed By: #### L 501.4405, L501.1105, L500.4100, L100.0500, L501.9910 #### [facility] [address] [place], [place], [address] GFR/1.73 sq M.predicted among non-blacks MDRD (S/P/Bld) [Vol rate/Area] 94 mL/min/{1.73_m2} Normal >60 [facility] Comment on above: Order Comment: Order Date: 06/05/23 Order Info: [id number] - LIPID Order Info: 144-04 - CRE Order Info: 1741-09 Order Info: 2856-04 - PSA Result Comment: Non- GFR Calc Performed By: #### L 501.4405, L501.1105, L500.4100, L100.0500, L501.9910 #### [facility] [address] [place], [place], [address] Serum or plasma creatinine m easurement (mass/volume)Ordered By: Blue Gomes on 06-20-2023 Creatinine [Mass/Vol] 0.88 mg/dL 0.70-1.30 [facility] Comment on above: The validity of the calculated GFR & GFRAA in patients over 70 years has not been determined. Clinical correlation is essential. Chris 03-02-2019 CNOV Office Visit (UCWSTR ) WALI ARRIOLA ([id number]) 1960 M Date Time Provider Department 03/02/19 [...] Date Reviewed: 03/02/2019 Reviewed by: Susan Ortiz Picker Machine Operator - Fully Assessed Reason for Visit: Cough [...] Status:Closed by TRINY MOREL on 03/02/19 Normal [facility] PROGRESSon 03-02-2019 PROGRESS HNO ID: [id number] Author: Triny Morel Service: ? Author Type: [...] Discussed expected course of illness Triny Morel APRN.CHARGE MACHINE OPERATOR Normal [facility] CNOVon 07-30-2018 CNOV Office Visit (VASSWS ) WALI ARRIOLA ([id number]) 1960 M Date Time Provider Department 07/30/18 [...] Michelle Krause DO Referring Provider: MICHELLE KRAUSE [[id number]] Allergies As of Date: 07/30/2018 (No Known [...] by MICHELLE KRAUSE DO on 07/30/18 Normal [facility] PROGRESSon 07-30-2018 PROGRESS HNO ID: [id number] Author: Michelle Krause Service: ? Author Type: Physician Type: Progress Notes Filed: 07/30/2018 4:20 PM Note Text: This office note has been dictated. Michelle Krause DO [facility] PROGRESS HNO ID: [id number] Author: Michelle Krause Service: Vascular Surgery Author Type: Physician Type: Progress Notes Filed: 08/02/2018 3:46 PM Note Text: NAME: WALI ARRIOLA CLINIC NO: [id number] DATE OF SERVICE: 07/30/2018 Subjective: Mr. Arriola [...] worsen. Michelle Krause D.O. KB/089 Audio #: [id number] Date Dictated: 07/30/2018 14:45:33 Date Typed: 08/02/2018 14:00:09 Date Revised: Normal [facility] PROGRESS HNO ID: [id number] Author: Brenda Ramachandran Ma Service: ? Author [...] or itching since wearing compression stocking. Normal [facility] CNOVon 06-04-2018 CNOV Office Visit (VASSWS ) WALI ARRIOLA ([id number]) 1960 M Date Time Provider Department 06/04/18 [...] [I83.892] Order(s): VENOUS INCOMPETENCY [facility] [[id number]] Order #: [id number] FUTURE Prescriptions as of 06/04/2018 Sig: VITAMIN [...] by MICHELLE KRAUSE DO on 06/04/18 Normal [facility] PROGRESSon 06-04-2018 PROGRESS HNO ID: [id number] Author: Michelle Krause Service: ? Author Type: [...] June 04, 2018 TIME: 8:25 AM Normal [facility] Office Visit: c-scopeon - Documentation of current medications (procedure) Done Invalid Interpretation Code [facility] Work Phone: Fall risk assessment No Invalid Interpretation Code [facility] [employer] Work Phone: Tobacco use [facility] Never smoker Invalid Interpretation Code [facility] [employer] Work Phone: Vital Signs Date Time Vital Sign Value Performing Clinician Facility 12-01-2016 15:34-0400 BMI (Body Mass Index) 24.59 kg/m2 [facility] Work Phone: 12-01-2016 15:34-0400 BP Diastolic 78 mm[Hg] [facility] Work Phone: 12-01-2016 15:34-0400 BP Systolic 112 mm[Hg] [facility] Work Phone: 12-01-2016 15:34-0400 Height 170.18 cm [facility] Work Phone: 12-01-2016 15:34-0400 Pulse (Heart Rate) 76 /min [facility] Work Phone: 12-01-2016 15:34-0400 Respiratory Rate 18 /min [facility] Work Phone: 12-01-2016 15:34-0400 Weight 71.22 kg [facility] Work Phone: Encounters Encounter Date Encounter Type Care Provider Facility Start: [facility] Start: 02-15-2024 End: 02-15-2024 ambulatory [place] Facility:[facility] Start: 06-20-2023 End: 06-20-2023 ambulatory [facility] Work Phone: Start: 06-20-2023 End: 06-20-[address] [facility] Start: 06-20-2023 End: 06-20-2023 ambulatory Blue Gomes Facility:[facility] Start: 03-03-2022 End: 03-03-2022 ambulatory [facility] Work Phone: Start: 03-03-2022 End: 03-03-[address] [facility] Start: 02-02-2022 End: 02-02-2022 Discharged Recurring [facility] Start: 12-16-2021 End: 12-16-[address] [facility] Date Procedure Procedure Detail Performing Clinician Start: 03-03-2022 MRI of lumbar spine Start: 03-03-2022 X-ray of eye for foreign body Start: 12-16-2021 X-ray of lumbosacral spine Plan of Treatment Date Care Activity Detail Author Start: 12-09-2016 End: 12-09-2016 Appointment Appointment [facility] Work Phone: Start: 12-01-2016 End: 12-01-2016 Appointment Appointment [facility] Work Phone: Start: 12-01-2016 End: 12-01-2016 Diagnostic colonoscopy Colonoscopy [facility] Work Phone: Payers Date Payer Category Payer Self-pay [id number] 2023 Unknown [id number] Unknown [id number] Unknown [id number] Unknown [id number] Social History Date Type Detail Facility Start: 07-27-2017 End: 03-10-2022 Tobacco smoking status OHIS Unknown if ever smoked [facility] Start: 1960 Sex Assigned At Male [facility] Evaluation note Note Date & Type Note Facility Evaluation note No assessment information availa ble [facility] Work Phone: Summary Purpose Family History No Family History Records Found Relationship Condition Age at Onset Recorded Date/T maritza father Malignant neoplasm Unknown uncle Pernicious anemia Unknown Advance Directives No Advanced Directives Records Found Advance Directive Response Recorded Date/ Time Living Will Yes June 12, 2017 3:00pm Power of Acid Supervisor Yes June 12 3:00pm Advance Directive Response Recorded Date/ Time Living Will Yes June 12, 2017 4:00pm Power of Acid Supervisor Yes June 12 4:00pm Chief Complaint and Reason for Visit Chief Complaint BACK PAIN LOW BACK PAIN/RX HERE BACK PAIN W/RADIATION Additional Source Comments (unrecognized sect ion and content) No Status Records FoundNo Status Records Found INFORMATION SOURCE (unrecogn ized section and content) DATE CREATED AUTHOR 03/02/2019 [facility] DATE CREATED AUTHOR AUTHOR'S ORGANIZ ATION 04/14/2024 [facility] Goals (unrecognized section and content) Goals [...] BE BASED ON THE PRIMARY CLINICAL RECORDS. [facility] [employer] [facility]. provides no warranty or guarantee of the accuracy or completeness of information in this document.
== END | disposition home or self-care (01) ==
LOC: MFPLAB 16:08
PROVIDERS: PCP Family Medicine; Visit Provider Family Medicine
DX: M25.562 Pain in left knee (principal)
CPT/HCPCS: 36415; 85025; 85652; 86140